=== PATIENT | male | born 1950 | race Caucasian/White ===

== ENCOUNTER 2016-05-02 02:10 | Emergency (ER) ==
[2016-05-02 02:19] VITALS: BP 176/70; TEMP 99.6; BMI 27.7
--- NOTE | 2016-05-02 02:25 | ED.PDOC ---
General ED Provider: Dr. THU VALLEJO-ER Chief Complaint: Respiratory Complaint Stated Complaint: rosangela got bronchitis--rosangela had it before Time Seen by Physician: 02:23 Mode of Arrival: Walk-In Information Source: Patient Exam Limitations: No limitations Nursing and Triage Documentation Reviewed and Agree: Yes Respiratory Complaint Exam - Respiratory Complaint/Exam Onset/Duration: 4 days Symptoms Are: Still present Timing: Intermittent Initial Severity: Mild Current Severity: Mild Location: Chest Character: Reports: Productive cough Aggravating: Reports: URI, Passive smoke exposure Alleviating: Reports: None Associated Signs and Symptoms: Reports: Wheezing, URI, Nasal congestion. Denies : Rapid breathing, Dyspnea, Fever, Chills, Chest pain, Pleuritic chest pain, Hemoptysis, Dizziness, Calf pain, Calf swelling, Edema, Hoarseness, Sinus discomfort, Vomiting, Sore throat, Weight loss, Decreased oral intake, Increased thirst, Increased appetite, Increased urination Related History: Reports: Similar episode History of Healthcare-Acquired Pneumonia: No Related Surgical History: Reports: None Pulmonary Embolism Risk Factors: Smoking Cardiac Risk Factors: Reports: Smoking Pseudomonas Risk Factors: Reports: None Tuberculosis Risk Factors: Reports: Smoking Status Asthmaticus Risk Factors: Reports: None Home Oxygen Use: No Recent Stress Test: No Recent Echo/LV Function: No Current Antibiotic Use: No Current Asthma Medication Use: No Respiratory Distress: None Inadequate Respiratory Effort: No Dysphagia Present: No Stridor Present: No JVD Present: No Accessory Muscle Use: No Retractions: Not Present Diminished Breath Sounds: No Sinus Tenderness: None Grunting Respirations: No Kussmaul Respirations: No Differential Diagnoses: Bronchitis Review of Systems - Review Of Systems Constitutional: Reports: No symptoms Eyes: Reports: No symptoms Ears, Nose, Mouth, Throat: Reports: No symptoms Respiratory: Reports: Cough, Wheezing Cardiac: Reports: No symptoms GI: Reports: No symptoms : Reports: No symptoms Musculoskeletal: Reports: No symptoms Skin: Reports: No symptoms Neurological: Reports: No symptoms Endocrine: Reports: No symptoms Hematologic/Lymphatic: Reports: No symptoms All Other Systems: Reviewed and Negative Past Medical History - Past Medical History Previously Healthy: Yes Endocrine: Reports: None Cardiovascular: Reports: None Respiratory: Reports: None Hematological: Reports: None Gastrointestinal: Reports: None Genitourinary: Reports: None Neuro/Psych: Reports: None Musculoskeletal: Reports: None Cancer: Reports: None - Surgical History General Surgical History: Reports: None - Family History Family History: Reports: None - Social History Smoking Status: Current every day smoker, Heavy tobacco smoker Hx Substance Use: Yes (marijuana) Alcohol Screening: None Lives: With family - Immunizations Tetanus Shot up to Date: No (states, "refuses shots") Physical Exam - Physical Exam Appearance: Well-appearing, No pain distress, Well-nourished Eyes: KE, EOMI, Conjunctiva clear ENT: Rhinorrhea Neck: Supple Respiratory: Rhonchi, Wheezes Cardiovascular: RRR, Pulses normal, No rub, No murmur GI/: Soft, Nontender, No masses, Bowel sounds normal, No Organomegaly Musculoskeletal: Normal strength, ROM intact, No edema, No calf tenderness Skin: Warm, Dry, Normal color Neurological: Sensation intact, Motor intact, Reflexes intact, Cranial nerves intact, Alert, Oriented Psychiatric: Affect appropriate Critical Care Note - Critical Care Note Total Time (mins): 0 Course - Course Orders, Labs, Meds: the patient refused any labs,xrays or ekg Vital Signs: Temp Pulse Resp BP Pulse Ox 05/02/16 02:11 99.6 F 95 H 22 176/70 H 94 L Departure - Departure Time of Disposition: 02:25 Disposition: HOME SELF-CARE Discharge Problem: Bronchitis Instructions: Acute Bronchitis (ED) Condition: Good Pt referred to PMD for follow-up: Yes Additional Instructions: ophelia henriquezrol dose pack--proventil inhaler 2 puffs qid --stop smoking--recheck in 48hrs if not improving --consider cxr Allergies/Adverse Reactions: Allergies No Known Allergies Allergy (Verified 05/02/16 02:19) Home Medications: Ambulatory Orders 1 [No Reported Medications] 11/02/14 Disposition Discussed With: Patient
== END 2016-05-02 02:41 | disposition home or self-care (01) ==
LOC: ED 02:10
DX: J20.9 Acute bronchitis, unspecified (principal); F17.210 Nicotine dependence, cigarettes, uncomplicated
CPT/HCPCS: 99282

== ENCOUNTER 2016-07-09 22:56 | Emergency (ER) ==
[2016-07-09 23:09] VITALS: BP 187/90; TEMP 98.8; BMI 29.0
[2016-07-10] MEDS: TORADOL IM STA (00:12)
[2016-07-10] MEDS: DECADRON 4 MG/ML SDV IM STA (00:14)
[2016-07-10] MEDS: NORCO 5-325 PO STA (00:14)
--- NOTE | 2016-07-10 00:30 | ED.PDOC ---
General ED Provider: Dr. THU VALLEJO-ER Chief Complaint: Extremity Swelling/Pain Stated Complaint: the top of my wrist has hurt for 3 weeks--hurts to move Time Seen by Physician: 22:55 Mode of Arrival: Walk-In Information Source: Patient, Family Exam Limitations: No limitations Nursing and Triage Documentation Reviewed and Agree: Yes Musculoskeletal Complaint Exam - Hand/Wrist Complaint/Exam Location of Pain: Reports: Left, Wrist Mechanism of Injury: Reports: No known trauma Onset/Duration: several weeks Symptoms Are: Still present Initial Severity: Mild Current Severity: Mild Location: Reports: Discrete (left wrist) Character: Reports: Dull, Aching, Stiffness Alleviating: Reports: Rest Aggravating: Reports: Movement Associated Signs and Symptoms: Denies: Swelling, Redness, Bruising, Fever, Weakness, Numbness, Tingling Dominant Hand: Right Related Surgical History: Reports: Other Orthopedic Surgery Hand/Wrist Findings: Absent: Swelling, Ecchymosis, Abnormal contour, Rotation, Ligamentous instability, Tinel's Sign, Phalen's Sign, Laceration, Nail avulsion , Subungal hematoma, Erythema, Warmth, Blisters Tenderness: Present: Radius, Ulna Compartment Syndrome Risk Factors: Present: Pain Differential Diagnoses: Sprain, Strain, Tendonitis, Tenosynovitis Review of Systems - Review Of Systems Constitutional: Reports: No symptoms Eyes: Reports: No symptoms Ears, Nose, Mouth, Throat: Reports: No symptoms Respiratory: Reports: No symptoms Cardiac: Reports: No symptoms GI: Reports: No symptoms : Reports: No symptoms Musculoskeletal: Reports: Muscle pain, Muscle stiffness Skin: Reports: No symptoms Neurological: Reports: No symptoms Endocrine: Reports: No symptoms Hematologic/Lymphatic: Reports: No symptoms All Other Systems: Reviewed and Negative Past Medical History - Past Medical History Previously Healthy: Yes Endocrine: Reports: None Cardiovascular: Reports: None Respiratory: Reports: None Hematological: Reports: None Gastrointestinal: Reports: None Genitourinary: Reports: None Neuro/Psych: Reports: None Musculoskeletal: Reports: None Cancer: Reports: None - Surgical History General Surgical History: Reports: None - Family History Family History: Reports: None - Social History Smoking Status: Current every day smoker, Heavy tobacco smoker Hx Substance Use: Yes (marijuana occasionally) Alcohol Screening: None Lives: With family - Immunizations Tetanus Shot up to Date: No Physical Exam - Physical Exam Appearance: Well-appearing, No pain distress, Well-nourished Pain Distress: Moderate Eyes: KE, EOMI, Conjunctiva clear ENT: Ears normal, Nose normal, Oropharynx normal Neck: Supple Respiratory: Airway patent, Breath sounds clear, Breath sounds equal, Respirations nonlabored Cardiovascular: RRR GI/: Soft, Nontender, No masses, Bowel sounds normal, No Organomegaly Musculoskeletal: Limited ROM Skin: Warm, Dry, Normal color Neurological: Sensation intact, Motor intact, Reflexes intact, Cranial nerves intact, Alert, Oriented Psychiatric: Affect appropriate, Mood appropriate Interpretation - Radiology Interpretation Radiology Interpretation By: Radiologist Radiology Results: Negative Critical Care Note - Critical Care Note Total Time (mins): 0 Course - Course Orders, Labs, Meds: Orders Category Date Time Status Dexamethasone 4 mg/ml Inj [Decadron 4 mg/ml Sdv] MEDS 07/09/16 23:46 Discontinued 4 mg IM ONCE STA Hydrocodone Bit/Acetaminophen [[place] 5-325] MEDS 07/09/16 23:46 Discontinued 1 tab PO ONCE STA Ketorolac Tromethamine [Toradol] MEDS 07/09/16 23:46 Discontinued 60 mg IM ONCE STA WRIST, LEFT 3 VIEWS Stat RADS 07/09/16 23:45 Completed Medications Discontinued Medications Generic Name Dose Route Start Last Admin Trade Name Freq PRN Reason Stop Dose Admin Acetaminophen/Hydrocodone Bitart 1 tab 07/09/16 23:46 07/10/16 00:14 [place] 5-325 PO 07/09/16 23:47 1 tab ONCE STA Administration Dexamethasone Sodium Phosphate 4 mg 07/09/16 23:46 07/10/16 00:14 Decadron 4 Mg/Ml Sdv IM 07/09/16 23:47 4 mg ONCE STA Administration Ketorolac Tromethamine 60 mg 07/09/16 23:46 07/10/16 00:12 Toradol IM 07/09/16 23:47 60 mg ONCE STA Administration Vital Signs: Temp Pulse Resp BP Pulse Ox 07/09/16 22:58 98.8 F 83 20 187/90 H 97 Departure - Departure Time of Disposition: 00:36 Disposition: HOME SELF-CARE Discharge Problem: De Quervain's disease (tenosynovitis) Instructions: De Quervain Disease (ED) Condition: Good Pt referred to PMD for follow-up: Yes Additional Instructions: stay in splint--medrol dose pack--norco 7.5mg q 4hrs prn pain #20--f/u with ortho next week Allergies/Adverse Reactions: Allergies No Known Allergies Allergy (Verified 07/09/16 23:11) Home Medications: Ambulatory Orders 1 [No Reported Medications] 11/02/14 Disposition Discussed With: Patient, Family
--- NOTE | 2016-07-10 00:35 | DI ---
EXAM: Left wrist, three views, 07/10/2016 HISTORY: Wrist pain COMPARISON: None FINDINGS / IMPRESSION: Normal anatomic alignment is maintained. There are is no evidence of fractu re or dislocation. Edematous appearance is present at the level of the distal forearm. Mild chronic osteoarthritic degenerative change. No acute post traumatic osseous abnormality.
== END 2016-07-10 01:00 | disposition home or self-care (01) ==
LOC: ED 22:56
DX: M65.4 Radial styloid tenosynovitis [de Quervain] (principal); M25.532 Pain in left wrist
CPT/HCPCS: 96372; 99283

== ENCOUNTER 2017-02-05 08:57 | Emergency (ER) ==
[2017-02-05 09:12] VITALS: BP 160/80; TEMP 98.4; BMI 26.4
[2017-02-05] MEDS ORDERED: DECADRON 4 MG/ML SDV IM STA (09:52)
--- NOTE | 2017-02-05 09:53 | ED.PDOC ---
General ED Provider: Dr. HERIBERTO MERCEDES Chief Complaint: Urinary Problem Stated Complaint: intermittent urinary hesitancy Time Seen by Physician: 09:00 (cough cold symptoms) Mode of Arrival: Walk-In Information Source: Patient Exam Limitations: No limitations Nursing and Triage Documentation Reviewed and Agree: Yes Reviewed sepsis parameters & appropriate labs ordered?: Yes (started after taking a decongestant , ) System Inflammatory Response Syndrome: Not Applicable Sepsis Protocol: For patient's 13 years and over: Temp is 96.8 and below OR 101 and greater Pulse >90 BPM Resp >20/minute Acutely Altered Mental Status Are patient's symptoms suggestive of a new infection, such as: -Pneumonia -Skin, Soft Tissue -Endocarditis -UTI -Bone, Joint Infection -Implantable Device -Acute Abdominal Infection -Wound Infection -Meningitis -Blood Stream Catheter Infection -Unknown Complaint Exam - Complaint/Exam Patient Complains of: Denies: Scrotal pain, Scrotal swelling, Groin pain, Groin swelling, Dysuria Onset/Duration: 1 day of intermittent frequnecy, hesitency Symptoms Are: Still present Timing: Intermittent Initial Severity: Mild Current Severity: Mild Location of Pain: Reports: None Aggravating: Reports: None Alleviating: Reports: None Associated Signs and Symptoms: Denies: Diaphoresis, Back pain, Fever, Hematuria , Dysuria, Constipation, Blood in stool, Rectal pain, Appetite change, Nausea, Vomiting, Penile swelling, Penile discharge, Decreased urine output, Increased urine frequency, Increased thirst, Decreased activity, Lethargy, Scrotal pain, Scrotal swelling, Abdominal Pain Testicular Torsion Risk Factors: Reports: None Surgical Obstruction Risk Factors: Reports: None Related Surgical History: Reports: None Abdominal Findings: Present: None Review of Systems - Review Of Systems Constitutional: Reports: No symptoms Eyes: Reports: No symptoms Ears, Nose, Mouth, Throat: Reports: No symptoms Respiratory: Reports: Cough Cardiac: Reports: No symptoms GI: Reports: No symptoms : Reports: Urgency, Other Musculoskeletal: Reports: No symptoms Skin: Reports: No symptoms Neurological: Reports: No symptoms Endocrine: Reports: No symptoms Hematologic/Lymphatic: Reports: No symptoms All Other Systems: Reviewed and Negative Past Medical History - Past Medical History Previously Healthy: Yes Endocrine: Reports: None Cardiovascular: Reports: None Respiratory: Reports: None Hematological: Reports: None Gastrointestinal: Reports: None Genitourinary: Reports: None Neuro/Psych: Reports: None Musculoskeletal: Reports: None Cancer: Reports: None - Surgical History General Surgical History: Reports: None - Family History Family History: Reports: None - Social History Smoking Status: Current every day smoker, Heavy tobacco smoker Hx Substance Use: No (marjuana quite yesterday) Alcohol Screening: None - Immunizations Tetanus Shot up to Date: No Physical Exam - Physical Exam Appearance: Well-appearing, No pain distress, Well-nourished Eyes: KE, EOMI, Conjunctiva clear ENT: Ears normal, Nose normal, Oropharynx normal Respiratory: Rhonchi Cardiovascular: RRR, Pulses normal, No rub, No murmur GI/: Soft, Nontender, No masses, Bowel sounds normal, No Organomegaly Musculoskeletal: Normal strength, ROM intact, No edema, No calf tenderness Skin: Warm, Dry, Normal color Neurological: Sensation intact, Motor intact, Reflexes intact, Cranial nerves intact, Alert, Oriented Psychiatric: Affect appropriate, Mood appropriate Critical Care Note - Critical Care Note Total Time (mins): 0 Course - Course Hematology/Chemistry: 02/05/17 09:30 Orders, Labs, Meds: Lab Review 02/05/17 09:30 WBC 6.23 RBC 4.79 Hgb 14.0 Hct 40.0 L MCV 83.5 MCH 29.2 MCHC 35.0 RDW Coeff of Karen 13.3 Plt Count 190 Immature Gran % (Auto) 0.2 Neut % (Auto) 65.3 Lymph % (Auto) 23.3 [place] % (Auto) 10.1 H Eos % (Auto) 0.6 Baso % (Auto) 0.5 Immature Gran # (Auto) 0.0 Neut # 4.1 Lymph # 1.5 [place] # 0.6 Eos # 0.0 Baso # 0.0 Orders Category Date Time Status Bladder [ED BLADDER SCAN] .ONCE EMERGENCY 02/05/17 09:19 Active CBC W/ AUTO DIFF Stat LAB 02/05/17 09:30 Completed COMPREHENSIVE METABOLIC PANEL Stat LAB 02/05/17 09:30 Received URINALYSIS C & S IF INDICATED Stat LAB 02/05/17 09:19 Uncollected Vital Signs: Temp Pulse Resp BP Pulse Ox 02/05/17 08:58 98.4 F 80 16 160/80 H 94 L Departure - Departure Time of Disposition: 09:53 Disposition: HOME SELF-CARE Discharge Problem: Urinary symptoms, Prostate disease, Cough in adult Instructions: Benign Prostatic Hypertrophy (ED) Condition: Good Pt referred to PMD for follow-up: Yes Additional Instructions: Please call your Family Physician as soon as possible to schedule a follow-up appointment. I STROGNLY THINK THAT YOUR SYMPTOMS OF URGENCY FREQUENCY MAY BE RELATED TO YOUR PROSTATE GLAND. THIS GLAND CAN BE ENLARGED OR SOMETIMES BE AFFLICTED BY CANCER PLEASE DO NO OVERLOOK THIS ISSUE SEE YOUR MD HALINA Allergies/Adverse Reactions: Allergies No Known Allergies Allergy (Verified 02/05/17 09:17) Home Medications: Ambulatory Orders 1 [No Reported Medications] 11/02/14 Disposition Discussed With: Patient
[2017-02-06 02:07] VITALS: BMI 29.8
== END 2017-02-05 10:55 | disposition home or self-care (01) ==
LOC: ED 08:57
DX: R39.11 Hesitancy of micturition (principal); R05 Cough; N42.9 Disorder of prostate, unspecified; R31.9 Hematuria, unspecified; R39.15 Urgency of urination; F17.210 Nicotine dependence, cigarettes, uncomplicated
CPT/HCPCS: 36415; 80053; 81001; 85025; 96372; 99284

== ENCOUNTER 2017-02-05 21:55 | Inpatient (IN) ==
[2017-02-05] MEDS ORDERED: XOPENEX 1.25 MG NEB STA (22:05)
[2017-02-05] MEDS ORDERED: ALBUTEROL 0.042% NEB NEB STA (22:05)
[2017-02-05] MEDS ORDERED: ATIVAN IVP STA (22:06)
[2017-02-05] MEDS ORDERED: SODIUM CHLORIDE 1,000 ML IV STA (22:06)
[2017-02-05] MEDS ORDERED: ZOFRAN 4 MG/2 ML IVP STA (23:02)
--- NOTE | 2017-02-05 23:56 | CT ---
Exam: CT angiography of the chest History: Dyspnea Technique: [address] angiography of the chest. Multiplanar, maximum intensity projection and three-dim ensional reformations were performed. FINDINGS: The exam is technically adequate for evaluation of pulmonary arteries and aorta. There ar e no pulmonary artery filling defects. The aorta is normal. Atherosclerotic calcification of the co ronary arteries. Lung windows show no consolidative opacities. There is bronchial wall thickening a nd vague nodular ground-glass areas in the left lower lobe. Mild underlying emphysematous change. N o acute findings of the chest wall soft tissues or bony thorax. No acute findings of the upper abdom en. Impression: 1. No evidence of pulmonary artery thrombus 2. Left lower lobe bronchial wall thickening and patchy nodular infiltrates. Correlate for pneumoni tis.
[2017-02-06] MEDS ORDERED: ROCEPHIN 1 GM in SODIUM CHLORIDE 50 ML IV STA (00:35)
--- NOTE | 2017-02-06 00:35 | ED.PDOC ---
General ED Provider: Dr. THU VALLEJO-ER Chief Complaint: Non-specific Complaint Stated Complaint: im coughing and im not sleeping or eating--i was seen in the ed earlier today Time Seen by Physician: 22:05 Mode of Arrival: Walk-In Information Source: Patient, Family Exam Limitations: No limitations Nursing and Triage Documentation Reviewed and Agree: Yes Reviewed sepsis parameters & appropriate labs ordered?: Yes System Inflammatory Response Syndrome: Not Applicable Sepsis Protocol: For patient's 13 years and over: Temp is 96.8 and below OR 101 and greater Pulse >90 BPM Resp >20/minute Acutely Altered Mental Status Are patient's symptoms suggestive of a new infection, such as: -Pneumonia -Skin, Soft Tissue -Endocarditis -UTI -Bone, Joint Infection -Implantable Device -Acute Abdominal Infection -Wound Infection -Meningitis -Blood Stream Catheter Infection -Unknown Respiratory Complaint Exam - Respiratory Complaint/Exam Onset/Duration: 2 days Symptoms Are: Still present Timing: Intermittent Initial Severity: Mild Current Severity: Moderate Location: Chest Character: Reports: Non-productive cough Aggravating: Reports: URI Alleviating: Reports: None Associated Signs and Symptoms: Reports: Dyspnea, Fever, Pleuritic chest pain, URI. Denies: Rapid breathing, Chills, Chest pain, Wheezing, Hemoptysis, Dizziness, Calf pain, Calf swelling, Edema, Nasal congestion, Hoarseness, Sinus discomfort, Vomiting, Sore throat, Weight loss, Decreased oral intake, Increased thirst, Increased appetite, Increased urination Related History: Reports: Similar episode History of Healthcare-Acquired Pneumonia: No Cardiac Risk Factors: Reports: Smoking Tuberculosis Risk Factors: Reports: Smoking Status Asthmaticus Risk Factors: Reports: Smoke exposure Recent Stress Test: No Recent Echo/LV Function: No Respiratory Distress: None Inadequate Respiratory Effort: No Dysphagia Present: No Stridor Present: No JVD Present: No Accessory Muscle Use: No Retractions: Not Present Diminished Breath Sounds: No Sinus Tenderness: None Grunting Respirations: No Kussmaul Respirations: No Differential Diagnoses: Pneumonia, Bronchitis, Influenza Non-Traumatic Chest Pain Syncope: EKG Performed Review of Systems - Review Of Systems Constitutional: Reports: No symptoms Eyes: Reports: No symptoms Ears, Nose, Mouth, Throat: Reports: No symptoms Respiratory: Reports: Cough Cardiac: Reports: No symptoms GI: Reports: No symptoms : Reports: No symptoms Musculoskeletal: Reports: No symptoms Skin: Reports: No symptoms Neurological: Reports: No symptoms Endocrine: Reports: No symptoms Hematologic/Lymphatic: Reports: No symptoms All Other Systems: Reviewed and Negative Past Medical History - Past Medical History Previously Healthy: Yes Endocrine: Reports: None Cardiovascular: Reports: None Respiratory: Reports: None Hematological: Reports: None Gastrointestinal: Reports: None Genitourinary: Reports: None Neuro/Psych: Reports: None Musculoskeletal: Reports: None Cancer: Reports: None - Surgical History General Surgical History: Reports: None - Family History Family History: Reports: None - Social History Smoking Status: Current every day smoker, Heavy tobacco smoker Hx Substance Use: No ( yesterday) Alcohol Screening: None Lives: With family Physical Exam - Physical Exam Appearance: Well-appearing, No pain distress, Well-nourished Eyes: KE, EOMI, Conjunctiva clear ENT: Ears normal, Nose normal, Oropharynx normal Neck: Supple Respiratory: Crackles, Rhonchi Cardiovascular: RRR, Pulses normal, No rub, No murmur GI/: Soft, Nontender, No masses, Bowel sounds normal, No Organomegaly Musculoskeletal: Normal strength, ROM intact, No edema, No calf tenderness Skin: Warm, Dry, Normal color Neurological: Sensation intact Psychiatric: Affect appropriate, Mood appropriate Interpretation - Radiology Interpretation Radiology Interpretation By: Radiologist Radiology Results: Positive Exam Interpreted: CT Scan - EKG Interpretation Time of EKG #1: 00:37 Rate: Normal Rhythm: Sinus Ectopy: None [place]: NL ST Segment: Normal Physician Notification - Case Discussed Physician Notified: dr carroll Time of Notification: 00:38 Critical Care Note - Critical Care Note Total Time (mins): 0 Course - Course Hematology/Chemistry: 02/05/17 22:15 02/05/17 22:15 Orders, Labs, Meds: Lab Review 02/05/17 02/05/17 02/05/17 22:04 22:15 22:15 WBC 8.77 RBC 4.81 Hgb 14.2 Hct 40.1 L MCV 83.4 MCH 29.5 MCHC 35.4 RDW Coeff of Karen 13.4 Plt Count 193 Immature Gran % (Auto) 0.1 Neut % (Auto) 72.3 Lymph % (Auto) 19.6 [place] % (Auto) 7.8 Eos % (Auto) 0.0 Baso % (Auto) 0.2 Immature Gran # (Auto) 0.0 Neut # 6.3 Lymph # 1.7 [place] # 0.7 Eos # 0.0 Baso # 0.0 Puncture Site Rrad O2 Saturation 94.0 L ABG pH 7.422 ABG pCO2 37.2 ABG pO2 67.0 L ABG HCO3 24.2 ABG Total CO2 25 ABG Base Excess 0 Gabriel Test + FiO2 % 21.0 Sodium 135 L Potassium 3.9 Chloride 100 Carbon Dioxide 24 Anion Gap 14.9 BUN 12 Creatinine 0.80 Estimated GFR (MDRD) 97.00 BUN/Creatinine Ratio 15.00 Glucose 119 H Lactic Acid Calcium 9.5 Total Bilirubin 0.4 AST 22 ALT 20 Alkaline Phosphatase 80 Total Creatine Kinase 131 CK-MB (CK-2) 3.8 H CK-MB (CK-2) % 2.33258 Troponin I < 0.0100 B-Natriuretic Peptide Total Protein 7.2 Albumin 3.6 Globulin 3.6 Albumin/Globulin Ratio 1.00 Procalcitonin Influenza A (Rapid) Influenza B (Rapid) 02/05/17 02/05/17 02/05/17 22:15 23:07 23:09 WBC RBC Hgb Hct MCV MCH MCHC RDW Coeff of Karen Plt Count Immature Gran % (Auto) Neut % (Auto) Lymph % (Auto) [place] % (Auto) Eos % (Auto) Baso % (Auto) Immature Gran # (Auto) Neut # Lymph # [place] # Eos # Baso # Puncture Site O2 Saturation ABG pH ABG pCO2 ABG pO2 ABG HCO3 ABG Total CO2 ABG Base Excess Gabriel Test FiO2 % Sodium Potassium Chloride Carbon Dioxide Anion Gap BUN Creatinine Estimated GFR (MDRD) BUN/Creatinine Ratio Glucose Lactic Acid 6.3 Calcium Total Bilirubin AST ALT Alkaline Phosphatase Total Creatine Kinase CK-MB (CK-2) CK-MB (CK-2) % Troponin I B-Natriuretic Peptide < 10 Total Protein Albumin Globulin Albumin/Globulin Ratio Procalcitonin Influenza A (Rapid) Negative Influenza B (Rapid) Positive H 02/05/17 23:09 WBC RBC Hgb Hct MCV MCH MCHC RDW Coeff of Karen Plt Count Immature Gran % (Auto) Neut % (Auto) Lymph % (Auto) [place] % (Auto) Eos % (Auto) Baso % (Auto) Immature Gran # (Auto) Neut # Lymph # [place] # Eos # Baso # Puncture Site O2 Saturation ABG pH ABG pCO2 ABG pO2 ABG HCO3 ABG Total CO2 ABG Base Excess Gabriel Test FiO2 % Sodium Potassium Chloride Carbon Dioxide Anion Gap BUN Creatinine Estimated GFR (MDRD) BUN/Creatinine Ratio Glucose Lactic Acid Calcium Total Bilirubin AST ALT Alkaline Phosphatase Total Creatine Kinase CK-MB (CK-2) CK-MB (CK-2) % Troponin I B-Natriuretic Peptide Total Protein Albumin Globulin Albumin/Globulin Ratio Procalcitonin < 0.05 Influenza A (Rapid) Influenza B (Rapid) Orders Category Date Time Status ABG DRAW REQUEST Stat CARDIO 02/05/17 22:04 Ordered EKG-(ED ONLY) Stat CARDIO 02/05/17 22:04 Ordered NEBULIZER TREATMENT Stat CARDIO 02/05/17 22:05 Ordered NPO REMINDER: IMAGING ONCE CARE 02/05/17 22:07 Completed IV [ED IV/MEDIPORT/POWERPORT] .ONCE EMERGENCY 02/05/17 22:05 Active ABG Stat LAB 02/05/17 22:04 Completed BLOOD CULTURE (ED ONLY) Stat LAB 02/06/17 Ordered BNP [B-TYPE NATRIURETIC PEPTIDE] Stat LAB 02/05/17 22:15 Completed CBC W/ AUTO DIFF Stat LAB 02/05/17 22:15 Completed COMPREHENSIVE METABOLIC PANEL Stat LAB 02/05/17 22:15 Completed CREATINE KINASE Stat LAB 02/05/17 22:15 Completed LACTIC ACID Stat LAB 02/05/17 23:07 Completed MOLECULAR GROUP A STREP Stat LAB 02/05/17 23:09 Results PROCALCITONIN Stat LAB 02/05/17 23:09 Completed RAPID FLU A/B Stat LAB 02/05/17 23:09 Completed STREP SCREEN Stat LAB 02/05/17 23:09 Results TROPONIN I Stat LAB 02/05/17 22:15 Completed 0.9 % Sodium Chloride [Saline Flush] MEDS 02/05/17 22:05 Ordered 1 syr IVF PRN PRN Albuterol Sulfate 0.042% Neb [Albuterol 0.042% Neb] MEDS 02/05/17 22:05 Discontinued 1 vial NEB ONCE STA Ceftriaxone Sodium [Rocephin] 1 gm MEDS 02/06/17 00:35 Ordered 0.9 % Sodium Chloride [Sodium Chloride] 50 ml IV ONCE Levalbuterol HCl [Xopenex 1.25 mg] MEDS 02/05/17 22:05 Discontinued 1 vial NEB ONCE STA Lorazepam Inj [Ativan] MEDS 02/05/17 22:06 Discontinued 1 mg IVP ONCE STA Ondansetron HCl/Pf [Zofran 4 mg/2 ml] MEDS 02/05/17 23:02 Discontinued 4 mg IVP ONCE STA Sodium Chloride 0.9% [Sodium Chloride] 1,000 ml MEDS 02/05/17 22:06 Active IV 100 mls/hr CT CHEST PE PROTOCOL Stat RADS 02/05/17 22:07 Completed Medications Generic Name Dose Route Start Last Admin Trade Name Freq PRN Reason Stop Dose Admin Sodium Chloride 1,000 mls @ 100 mls/hr 02/05/17 22:06 02/05/17 22:40 Sodium Chloride IV 02/06/17 08:05 100 mls/hr .Q10H STA Administration Sodium Chloride 1 syr 02/05/17 22:05 02/05/17 22:52 Saline Flush IVF 1 syr PRN PRN Administration To flush IV Discontinued Medications Generic Name Dose Route Start Last Admin Trade Name Freq PRN Reason Stop Dose Admin Albuterol Sulfate 1 vial 02/05/17 22:05 Albuterol 0.042% Neb [facility] 02/05/17 22:06 ONCE STA Levalbuterol HCl 1 vial 02/05/17 22:05 02/05/17 22:24 Xopenex 1.25 Mg NEB 02/05/17 22:06 1 vial ONCE STA Administration Lorazepam 1 mg 02/05/17 22:06 02/05/17 22:51 Ativan IVP 02/05/17 22:07 1 mg ONCE STA Administration Ondansetron HCl 4 mg 02/05/17 23:02 Zofran 4 Mg/2 Ml IVP 02/05/17 23:03 ONCE STA Vital Signs: Temp Pulse Resp BP Pulse Ox 02/05/17 22:02 100.2 F H 98 H 22 154/68 H 93 L Departure - Departure Time of Disposition: 00:38 Disposition: ADMITTED INPATIENT Discharge Problem: Influenza B Pneumonia Qualifiers: Pneumonia type: due to unspecified organism Laterality: left Lung location: unspecified part of lung Qualified Code(s): J18.9 - Pneumonia, unspecified organism Instructions: Influenza (ED) Condition: Good Pt referred to PMD for follow-up: Yes Allergies/Adverse Reactions: Allergies No Known Allergies Allergy (Verified 02/05/17 09:17) Home Medications: Ambulatory Orders 1 [No Reported Medications] 11/02/14 Disposition Discussed With: Patient, Family
[2017-02-06] MEDS ORDERED: TYLENOL PO PRN (00:39)
[2017-02-06] MEDS ORDERED: ROCEPHIN ONE (00:44)
[2017-02-06] MEDS: TAMIFLU PO SCH ×3 (01:37→20:45)
[2017-02-06 02:07] VITALS: BMI 29.8
[2017-02-06] MEDS: SOLU-MEDROL 40 MG IVP SCH ×4 (02:32→20:45)
[2017-02-06] MEDS: DUONEB NEB SCH ×4 (04:56→20:07)
[2017-02-06] MEDS ORDERED: DUONEB NEB SCH (06:00)
[2017-02-06] MEDS: ZITHROMAX PO SCH (08:03)
[2017-02-06] MEDS: LOVENOX SUBCUT SCH (08:04)
[2017-02-06] MEDS: ROCEPHIN 1 GM in SODIUM CHLORIDE 50 ML IV SCH (20:45)
[2017-02-07] MEDS: DUONEB NEB SCH ×4 (04:37→23:28)
[2017-02-07] MEDS: SOLU-MEDROL 40 MG IVP SCH ×3 (05:32→22:21)
[2017-02-07] MEDS: TAMIFLU PO SCH ×2 (08:52→21:16)
[2017-02-07] MEDS: ZITHROMAX PO SCH (08:52)
[2017-02-07] MEDS: LOVENOX SUBCUT SCH (10:15)
[2017-02-07] MEDS: ROCEPHIN 1 GM in SODIUM CHLORIDE 50 ML IV SCH (21:16)
[2017-02-08 05:57] VITALS: BP 131/70; TEMP 96.5
[2017-02-08] MEDS: DUONEB NEB SCH ×2 (06:18→10:10)
[2017-02-08] MEDS: SOLU-MEDROL 40 MG IVP SCH (06:49)
[2017-02-08] MEDS: ZITHROMAX PO SCH (09:56)
[2017-02-08] MEDS: LOVENOX SUBCUT SCH (09:57)
[2017-02-08] MEDS: TAMIFLU PO SCH (09:57)
--- NOTE | 2017-02-08 10:05 | DI ---
Exam: Two x-rays of the chest. Comparison: CT PE protocol performed 02/05/2017. Reason for exam: Cough. FINDINGS: No pneumothorax, pleural effusion, or focal consolidation. The cardiac silhouette is not e nlarged. The imaged osseous structures appear grossly unremarkable without acute fracture. Impression: No acute cardiopulmonary process.
--- NOTE | 2017-02-09 14:07 | PN ---
DATE OF SERVICE: 02/07/17 SUBJECTIVE: The patient was admitted with COPD exacerbation, hypoxemia and pneumonia. Breathing better, still has some cough and shortness of breath and getting yellow/green phlegm. REVIEW OF SYSTEMS: CONSTITUTIONAL: No fever, no chills. HEENT: Normal. ENDOCRINE: No weight gain, no weight loss. CVS: No angina symptoms. No CHF symptoms. No palpitations. No atypical chest pain for CAD. No shortness of breath. No PND, no orthopnea. RESPIRATORY: No cough, no hemoptysis. GI: No nausea, no vomiting. No abdominal pain. : No hematuria. No polyuria. MUSCULOSKELETAL:. No joint swelling. PSYCHIATRIC: Not anxious. No depression. No suicidal thoughts. No homicidal thoughts. SKIN: Intact. No rash. PHYSICAL EXAMINATION: V/S: Blood pressure 138/66, respiratory rate 23, heart rate 79, temperature 98.5. HEENT: Normocephalic, atraumatic. Mucosa dry. Pallor positive. NECK: Supple. No JVD, no carotid bruit. No lymphadenopathy. LUNGS: Decreased with basilar crackles left more then the right. No rales or rhonchi. HEART: S1, S2 normal. No S3. No murmur, gallop or regurgitation. ABDOMEN: Soft, nontender. Bowel sounds active. No rigidity. No rebound or guarding. No CVA tenderness. EXTREMITIES: No clubbing, cyanosis or pedal edema. MUSCULOSKELETAL: No joint swelling. NEUROLOGIC: Awake, alert, oriented times three. No focal deficit. LYMPHATIC: No lymph nodes palpable. SKIN: Intact. ASSESSMENT: 1. COPD exacerbation 2. Pneumonia community acquired left lower lobe 3. Influenza B 4. COPD 5. Hypoxemia 6. Osteoarthritis 7. Continued nicotine use PLAN: 1. Continue the Tamiflu 2. IV fluids 3. Solu-Medrol 4. Lovenox 5. Rocephin 6. Azithromycin TIME SPENT: More than 35 minutes MTDD
--- NOTE | 2017-02-09 14:18 | HP ---
DATE OF SERVICE: 02/06/17 CHIEF COMPLAINT: Shortness of breath HISTORY OF PRESENT ILLNESS: This is a 66 year old male cough and congested getting yellow to white phlegm. Gradually shortness of breath is getting worse and productive cough is getting worse. Feverish feeling, chilly sensation and hurting all over. Came to the emergency room and temperature was 100.2, saturation 93% on room air. Seen by Dr. Goldberg in ER. ABG showed the pH 7.42, pCO2 37.2, pO2 67. Influenza was positive for the Influenza B. CT chest showed the left lower lobe pneumonia and pneumonitis. At that time the patient was admitted to the hospital with the hypoxia and COPD, left lower lobe pneumonia and flu positive. REVIEW OF SYSTEMS: CONSTITUTIONAL: Fever, Chills. Weakness. Tiredness. HEENT: Normal. ENDOCRINE: No weight gain; no weight loss. CVS: No chest pain. No PND, no orthopnea. No shortness of breath. No PND, no orthopnea. RESPIRATORY: Cough, Congestion. No hemoptysis. GI: No nausea, no vomiting. No abdominal pain. No melena. : No hematuria. No polyuria. MUSCULOSKELETAL: No joint swelling. Hurting all over. PSYCHIATRIC: Not anxious. No depression. No suicidal thoughts. No homicidal thoughts. SKIN: Intact, no open lesions. PAST MEDICAL HISTORY: Nicotine use Apparently no medical problems patient has listed. PAST SURGICAL HISTORY: Hernia surgery two years ago. Mass removed in 1994 PERSONAL HISTORY: The patient does smoke but no alcohol and no drugs. Family history is significant for the coronary artery disease, [place], leukemia. MEDICATIONS: No medications. ALLERGIES: No known allergies. PHYSICAL EXAMINATION: V/S: blood pressure 154/68, respiratory rate 22, heart rate 98, temperature 100.2 and 100.1, saturation 93%. GENERAL: Sick looking man lying in a bed, mildly in discomfort. HEENT: Atraumatic, normocephalic. No scleral icterus. Mucosa dry. NECK: Supple. No JVD, no bruit. No lymphadenopathy. No thyromegaly. HEART: S1, S2 normal. No murmur. No cyanosis or clubbing. No ascites. LUNGS: Decreased with basilar crackles left more than the right. No rales or rhonchi. ABDOMEN: Soft, nontender. Bowel sounds are active. No CVA tenderness. No rigidity or guarding. EXTREMITIES: No cyanosis, clubbing or pedal edema. MUSCULOSKELETAL: Normal joints, no swelling. NEUROLOGIC: The patient is SKIN: Intact; no open lesions. LYMPHATIC: No lymph nodes palpable. LABS: WBC 9.76, hgb 13.2, hct 37.8, plt count 166, sodium 134, potassium 3.8, chloride 99, bicarb 27, BUN 12, creatinine 0.88, glucose 130. First set of cardiac enzymes are negative. Flu B Positive. ASSESSMENT: 1. Left lower lobe pneumonia 2. Flu B positive 3. Dehydration 4. Hernia repair 5. Nicotine use PLAN: 1. Admit the patient to regular floor 2. CBC and CMP today and daily 3. Cardiac enzymes and Troponin 4. IV fluids 5. Rocephin 1 gram daily 6. Lovenox for the DVT prophylaxis 7. DUO NEBS 8. Tamiflu 75mg PO twice a day 9. IV fluids TIME SPENT: MORE THAN 70 minutes MTDD
--- NOTE | 2017-03-01 11:54 | DS ---
DATE OF SERVICE: 02/08/17 FINAL DIAGNOSIS: 1. INFLUENZA B POSITIVE 2. LEFT LOWER LOBE PNEUMONITIS 3. HYPOXEMIA 4. DEHYDRATION 5. HISTORY OF HERNIA REPAIR PLAN: 1. Discharge the patient home. 2. Keflex 500 mg twice a day for five days. 3. Tamiflu twice a day until gone. 4. Prednisone 10 mg twice a day for five days. 5. Follow up with Dr. Miguel February the . 6. Increase hydration. 7. Probiotics and yogurt. 8. Activity: as much as tolerated. DISEASE SPECIFIC EDUCATION: About the influenza infection and pneumonia, need of pneumonia vaccination and antibiotic use and diarrhea were discussed. HOSPITAL COURSE: Jorge Christian who is a 66 year old male literally apparently healthy male came to the emergency room with cough and congestion for three to four days being dehydrated. He came to the emergency room and was seen by Dr. Goldberg in the emergency room. Temperature was 100.2, blood pressure 154/68. ABG's showed the hypoxia with a pH of 7.422, PCO2 37.2, PO2 67. White count was normal and serology showed the positive influenza B and CT of the chest showed the left lower lobe pneumonitis. At that time, he was admitted to the hospital and started on IV antibiotics and the breathing treatments and Tamiflu was given. Solu-Medrol 40 every 8 hours. Lovenox for the DVT prophylaxis. Rocephin was given. With the given treatment, the patient started feeling better. He was up and about walking. Less short of breath. Fever was literally disappeared in two days. Repeat chest x-ray done today and the chest x-ray was normal. At that time, the patient was discharged to home. TIME SPENT: MORE THAN 65 MINUTES TODAY [facility]
== END 2017-02-08 11:50 | disposition home or self-care (01) | DRG 190 ==
LOC: ED 21:55 → MEDSURG A 02-06 00:47
PROVIDERS: ADMIT Emergency Medicine; ATTEND Emergency Medicine
DX: J44.1 Chronic obstructive pulmonary disease with (acute) exacerbation (principal); J11.08 Influenza due to unidentified influenza virus with specified pneumonia; J18.1 Lobar pneumonia, unspecified organism; J44.0 Chronic obstructive pulmonary disease with (acute) lower respiratory infection; R09.02 Hypoxemia; E86.0 Dehydration; R06.02 Shortness of breath; R50.9 Fever, unspecified; M19.90 Unspecified osteoarthritis, unspecified site; F17.200 Nicotine dependence, unspecified, uncomplicated; Z98.890 Other specified postprocedural states
CPT/HCPCS: 36415; 80053; 82550; 82553; 82803; 83605; 83880; 84145; 84484; 85025; 87040; 87502; 87651; 87880; 93005; 93010; 94640; 96365; 96366; 96375; 99284

== ENCOUNTER 2017-02-23 12:31 | Outpatient (CLI) | END 2017-02-23 12:32 | disposition home or self-care (01) | LOC: CAR 12:31 | PROVIDERS: ATTEND Emergency Medicine | DX: J41.0 Simple chronic bronchitis (principal) ==

== ENCOUNTER 2017-06-06 15:55 | Outpatient (CLI) | END 2017-06-06 15:56 | disposition home or self-care (01) | LOC: RHC-LAB 15:55 | PROVIDERS: ATTEND Emergency Medicine | DX: R73.9 Hyperglycemia, unspecified (principal); D50.8 Other iron deficiency anemias; J44.9 Chronic obstructive pulmonary disease, unspecified; Z12.5 Encounter for screening for malignant neoplasm of prostate | CPT/HCPCS: 36415; 80053; 80061; 83036; 84443; 85025 ==

== ENCOUNTER 2017-09-13 09:58 | Outpatient (CLI) ==
--- NOTE | 2017-09-13 12:40 | DI ---
EXAM: Radiographs, right knee HISTORY: Right knee pain. COMPARISON: None available. TECHNIQUE: Four views. FINDINGS: Bone mineralization is normal. No fracture or dislocation identified. Mild tricompartmen isaías marginal osteophyte formation and joint space narrowing noted. No erosions are seen. Chondrocal cinosis noted in the menisci. Soft tissues are unremarkable. IMPRESSION: 1. Mild osteoarthritis. 2. Meniscal calcifications.
--- NOTE | 2017-09-13 12:42 | DI ---
EXAM: Left knee four view HISTORY: Pain in left knee COMPARISON: None FINDINGS: No fracture or dislocation. Small tricompartmental osteophytes with mild narrowing medial and patellofemoral compartment. Chondrocalcinosis medial and possibly lateral compartment. No joint effusion. IMPERSSION: Mild tricompartmental osteoarthritis. Chondrocalcinosis.
== END 2017-09-13 09:59 | disposition home or self-care (01) ==
LOC: RAD 09:58
PROVIDERS: ATTEND Emergency Medicine
DX: I10 Essential (primary) hypertension (principal); M25.562 Pain in left knee; M25.561 Pain in right knee; R73.9 Hyperglycemia, unspecified; J44.9 Chronic obstructive pulmonary disease, unspecified
CPT/HCPCS: 36415; 80053; 84550; 85025

== ENCOUNTER 2017-10-18 11:56 | Outpatient (CLI) | payer OTHER | END 2017-10-18 11:57 | disposition home or self-care (01) | LOC: LAB 11:56 | PROVIDERS: ATTEND Emergency Medicine | DX: R73.9 Hyperglycemia, unspecified (principal); I10 Essential (primary) hypertension; J44.9 Chronic obstructive pulmonary disease, unspecified; M54.5 Low back pain; G89.29 Other chronic pain; D50.8 Other iron deficiency anemias | CPT/HCPCS: 36415; 80053; 80061; 84443; 85025 ==

== ENCOUNTER 2017-10-25 06:26 | Outpatient (CLI) ==
--- NOTE | 2017-10-25 08:33 | STRESSECHO ---
Date of Test: 10/25/17 Ordering Physician: DR. RICHELLE HOLM/DR. RUDI NUNES Occupation: CLINIC PHYSICIAN Reason for Exam: SOB, HYPERTENSION Smoking History: QUIT JAN 2017 Height: 73" Weight: 250 LBS Current Medications: ASA, LASIX, LIPITOR, LISINOPRIL Resting EKG: SINUS RHYTHM/ NO ACUTE CHANGES Target Heart Rate: 131/155 S-T SEGMENT STAGE MPH/GRADE HEART RATE BPM BLOOD PRESSURE MMHG RHYTHM +/- ELEVATION DEPRESSION SYMPTOMS,COMMENTS AT REST 77 120/80 SR X NONE 1 1.7/10% 2 2.5/12% 3 3.4/14% 4 4.2/16% 5 5.0/18% Immediately After 142 190/78 SR X SHORT OF BREATH Minutes Post Exercise 4:00 80 160/70 SR X NO COMMENTS Minutes Post Exercise DURATION OF EXERCISE: 2:59 MAXIMUM HEART RATE REACHED: 142 REASON FOR TERMINATION: SHORT OF BREATH SAO2 89% ON ROOM AIR WITH EXERCISE INTERPRETATION: 1. TEST POSITIVE FOR ISCHEMIC ST-T WAVE CHANGES 2. NO CHEST PAIN OR DISCOMFORT 3. RARE ISOLATED PVC'S WITH EXERCISE 4. BLOOD PRESSURE: SYSTOLIC HYPERTENSION WITH EXERCISE 5. HYPOKINESIA WITH EXERCISE MILDLY HYPOKINETIC INFERIOR POST WALL WITH EXERCISE MTDD
--- NOTE | 2017-10-25 08:46 | ECHOSTRESS ---
Date of Exam: 10/25/17 Ordering Physician: DR. RICHELLE HOLM/ DR. RUDI NUNES Reason for Echo: SOB, STRESS TEST--POSITIVE FOR ISCHEMIA M-Mode Normal Adult Results LV Dimensions Normal Adult Results AoV Opening excursions >1.6 LVEDD-base- 3.5-5.8 Ao root dimensions 2.0-3.7 LVESD-base- 3.1-4.6 L. Atrium dimensions 1.9-3.8 Post. Wall thickness 0.8-1.1 IV septum (thickness) 0.7-1.2 Post. Wall excursion 0.72-1.3 Septal motion Systolic motion R. Ventricular cavity 1.5-2.0 LVEF 60% Paradoxical septal wall motion 2-D: MILD INFERIOR POST WALL HYPOKINESIA WITH EXERCISE--NORMAL LEFT VENTRICULAR CONTRACTILITY WITH EXERCISE M-MODE: MV: AV: TV: PV: CHAMBER SIZE: WALL MOTION: MILD INFERIOR POST WALL HYPOKINESIA WITH EXERCISE--NORMAL LEFT VENTRICULAR CONTRACTILITY WITH EXERCISE PERICARDIUM: INTERPRETATION: 1. MILD INFERIOR POST WALL HYPOKINESIA WITH EXERCISE--NORMAL LEFT VENTRICULAR CONTRACTILITY WITH EXERCISE MTDD
== END 2017-10-25 06:27 | disposition home or self-care (01) ==
LOC: CAR 06:26
PROVIDERS: ATTEND Emergency Medicine
DX: R06.02 Shortness of breath (principal)

== ENCOUNTER 2018-02-07 05:48 | Emergency (ER) ==
[2018-02-07 06:01] VITALS: BP 143/76; TEMP 97.9; BMI 34.4
--- NOTE | 2018-02-07 06:08 | ED.PDOC ---
General ED Provider: Dr. THU VALLEJO-ER Chief Complaint: Sore Throat Stated Complaint: im coughing and i have a sore thrpat Time Seen by Physician: 05:55 Mode of Arrival: Walk-In Information Source: Patient Exam Limitations: No limitations Primary Care Provider: RICHELLE HOLM Nursing and Triage Documentation Reviewed and Agree: Yes Does patient meet sepsis criteria?: No System Inflammatory Response Syndrome: Not Applicable Sepsis Protocol: For patient's 13 years and over: Temp is 96.8 and below OR 101 and greater Pulse >90 BPM Resp >20/minute Acutely Altered Mental Status Are patient's symptoms suggestive of a new infection, such as: -Pneumonia -Skin, Soft Tissue -Endocarditis -UTI -Bone, Joint Infection -Implantable Device -Acute Abdominal Infection -Wound Infection -Meningitis -Blood Stream Catheter Infection -Unknown Respiratory Complaint Exam - Respiratory Complaint/Exam Onset/Duration: less than 24hrs Symptoms Are: Still present Timing: Constant Initial Severity: Mild Current Severity: Moderate Location: Throat, Chest Character: Reports: Non-productive cough Aggravating: Reports: URI Associated Signs and Symptoms: Reports: URI, Nasal congestion, Hoarseness, Sore throat. Denies: Rapid breathing, Dyspnea, Fever, Chills, Chest pain, Pleuritic chest pain, Wheezing, Hemoptysis, Dizziness, Calf pain, Calf swelling, Edema Related History: Reports: Similar episode Home Oxygen Use: No Recent Stress Test: No Recent Echo/LV Function: No Current Antibiotic Use: No Current Asthma Medication Use: No Respiratory Distress: None Inadequate Respiratory Effort: No Dysphagia Present: No Stridor Present: No JVD Present: No Accessory Muscle Use: No Retractions: Not Present Diminished Breath Sounds: No Sinus Tenderness: None Grunting Respirations: No Kussmaul Respirations: No Differential Diagnoses: Bronchitis Review of Systems - Review Of Systems Constitutional: Reports: No symptoms Eyes: Reports: No symptoms Ears, Nose, Mouth, Throat: Reports: Throat pain Respiratory: Reports: Cough Cardiac: Reports: No symptoms GI: Reports: No symptoms : Reports: No symptoms Musculoskeletal: Reports: No symptoms Skin: Reports: No symptoms Neurological: Reports: No symptoms Endocrine: Reports: No symptoms Hematologic/Lymphatic: Reports: No symptoms All Other Systems: Reviewed and Negative Past Medical History - Past Medical History Previously Healthy: Yes Endocrine: Reports: None Cardiovascular: Reports: None Respiratory: Reports: None Hematological: Reports: None Gastrointestinal: Reports: None Genitourinary: Reports: None Neuro/Psych: Reports: None Musculoskeletal: Reports: None Cancer: Reports: None - Surgical History General Surgical History: Reports: None - Family History Family History: Reports: None - Social History Smoking Status: Former smoker Hx Substance Use: Yes (hx marijuana) Alcohol Screening: None - Immunizations Tetanus Shot up to Date: Yes Physical Exam - Physical Exam Appearance: Well-appearing, No pain distress, Well-nourished Pain Distress: Mild Eyes: KE, EOMI, Conjunctiva clear ENT: Rhinorrhea, Erythema Neck: Supple Respiratory: Rhonchi Cardiovascular: RRR, Pulses normal, No rub, No murmur GI/: Soft, Nontender, No masses, Bowel sounds normal, No Organomegaly Musculoskeletal: Normal strength, ROM intact, No edema, No calf tenderness Skin: Warm, Dry, Normal color Neurological: Sensation intact, Motor intact, Reflexes intact, Cranial nerves intact, Alert, Oriented Psychiatric: Affect appropriate, Mood appropriate Critical Care Note - Critical Care Note Total Time (mins): 0 Course - Course Vital Signs: Temp Pulse Resp BP Pulse Ox 02/07/18 05:50 97.9 F 83 20 143/76 H 97 Departure - Departure Time of Disposition: 06:07 Disposition: HOME SELF-CARE Discharge Problem: Sore throat symptom, Bronchitis Instructions: Acute Bronchitis (ED) Condition: Good Pt referred to PMD for follow-up: No IPMP verified?: No Additional Instructions: keflex 500mg bid x 7 days---medrol dose pack--salt water gargles--recheck in 72hrs if not better Allergies/Adverse Reactions: Allergies No Known Allergies Allergy (Verified 02/07/18 05:58) Home Medications: Ambulatory Orders Aspirin [Aspirin Ec] 81 mg PO DAILY 08/02/17 Carvedilol [Coreg] 3.125 mg PO BID 02/07/18 Ipratropium [place] [Atrovent Hfa] 1 - 2 puff IH TID 02/07/18 Disposition Discussed With: Patient, Family
== END 2018-02-07 06:16 | disposition home or self-care (01) ==
LOC: ED 05:48
DX: J02.9 Acute pharyngitis, unspecified (principal); J40 Bronchitis, not specified as acute or chronic
CPT/HCPCS: 99282

== ENCOUNTER 2018-10-19 07:33 | Outpatient (CLI) | payer OTHER ==
--- NOTE | 2018-10-19 09:17 | CT ---
EXAM: CT of the chest without contrast History: Short of breath Comparison: Chest radiograph 02/08/2017, chest CT 02/05/2017 Technique: Multiplanar CT images through the thorax were obtained without the administration of IV c ontrast Findings: Heart size is normal. No pericardial effusion. No thoracic aortic aneurysm. Coronary silvia cifications. No change in the left thyroid nodule. No pathologically enlarged axillary or mediastin al lymph nodes. Evaluation for hilar lymph nodes is limited due to the lack of contrast administrati on. No consolidation. No pleural fluid and no pneumothorax. No change in the mild biapical lung sc arring. No suspicious lung masses or lung nodules. Within the visualized upper abdomen, partially visualized left renal cyst. Stable tiny cyst within t he liver. No acute osseous abnormalities. Impression: 1. No acute intrathoracic process. 2. Coronary artery disease. 3. Left thyroid nodule. Correlate with thyroid ultrasound.
== END 2018-10-19 07:34 | disposition home or self-care (01) ==
LOC: RAD 07:33
PROVIDERS: ATTEND Internal Medicine
DX: R06.02 Shortness of breath (principal)

== ENCOUNTER 2018-10-24 11:27 | Outpatient (CLI) ==
--- NOTE | 2018-10-24 17:00 | US ---
EXAM: THYROID ULTRASOUND HISTORY: Left thyroid nodule FINDINGS: Ultrasound thyroid. Real time harrison-scale ultrasound and color Doppler imaging. COMPARISON: No comparison ultrasound. The right thyroid lobe measured 4.9 x 1.9 x 2.0 cm. The isthmus measured 0.46 cm. The left thyroid lobe measured 4.1 x 2.6 x 2.2 cm. Within the inferior left lobe, there is a 2.4 x 2.2 x 2.1 cm solid hypoechoic well-defined slightly o kenya shaped nodule. It would be difficult to exclude a few internal echogenicities within the nodule on the images presented. No other nodules are seen. General blood flow to the gland is normal. IMPRESSION: 1. Prominent inferior left thyroid nodule as described. Given size and appearance, fine needle aspi ration could be considered.
== END 2018-10-24 11:28 | disposition home or self-care (01) ==
LOC: RAD 11:27
PROVIDERS: ATTEND Internal Medicine
DX: E04.1 Nontoxic single thyroid nodule (principal)

== ENCOUNTER 2021-12-06 18:48 | Inpatient (IN) ==
--- NOTE | 2021-12-06 19:22 | DI ---
EXAM: CHEST FRONTAL AND LATERAL VIEWS HISTORY: Shortness of breath COMPARISON: 02/08/2017 FINDINGS: Heart size and mediastinal contour remain within normal limits. No acute infiltrates. Normal vascularity with no pleural fluid or pneumothorax. The bony thorax has no acute finding. IMPRESSION: No acute cardiopulmonary process.
[2021-12-06 19:24] LABS: BASOPHILS # (AUTO) 0.1 K/uL (0-0.2); BASOPHILS % (AUTO) 0.8 % (0.0-3.0); EOSINOPHILS # (AUTO) 0.2 K/ul (0.0-0.7); EOSINOPHILS % (AUTO) 2.1 % (0.0-7.0); HEMATOCRIT 40.6 % (42.0-52.0); HEMOGLOBIN 13.2 g/dl (14.0-18.0); IMMATURE GRANULOCYTE % (AUTO) 0.1 % (0.0-5.0); LYMPHOCYTES # (AUTO) 1.6 K/uL (0.60-3.4); LYMPHOCYTES % (AUTO) 22.4 (10.0-50.0); MEAN CORPUSCULAR HEMOGLOBIN 28.9 pg (27.0-31.0); MEAN CORPUSCULAR HGB CONC 32.5 (31.8-35.4); MEAN CORPUSCULAR VOLUME 88.8 fl (80.0-94.0); MONOCYTES # (AUTO) 0.9 K/uL (0.4-2.0); MONOCYTES % (AUTO) 12.4 (0-10); NEUTROPHILS # (AUTO) 4.4 K/ul (2.0-6.9); NEUTROPHILS % (AUTO) 62.2 % (42.2-75.2); PLATELET COUNT 221 10^3/uL (140-440); RDW COEFFICIENT OF VARIATION 13.3 % (11.6-14.8); RED BLOOD COUNT 4.57 10^6/ul (4.70-6.10); WHITE BLOOD COUNT 7.15 K/ul (4.2-10.2)
[2021-12-06 19:41] LABS: ALANINE AMINOTRANSFERASE 19.7 U/L (0-50); ALBUMIN 4.26 g/dL (3.5-5.0); ALKALINE PHOSPHATASE 82.7 U/L (56-119); ASPARTATE AMINO TRANSFERASE 24.8 U/L (17-59); BILIRUBIN,TOTAL 0.47 mg/dL (0.2-1.3); BLOOD UREA NITROGEN 20.7 mg/dL (9-20); CALCIUM 9.89 mg/dL (8.4-10.2); CARBON DIOXIDE 27.9 mmol/L (22-30.0); CHLORIDE 100.2 mmol/L (98-107); CREATINE KINASE 60.2 U/L (55-170); CREATININE 1.14 mg/dL (0.60-1.10); GLUCOSE 126.2 mg/dL (74-106); POTASSIUM 4.13 mmol/L (3.5-5.1); SODIUM 136.6 mmol/L (134.5-145); TOTAL PROTEIN 7.71 g/dL (6.3-8.2)
[2021-12-06] MEDS ORDERED: DUONEB NEB STA ×2 (19:50→20:59)
[2021-12-06] MEDS ORDERED: SOLU-MEDROL 125 MG IVP STA (19:50)
[2021-12-06 19:55] LABS: TROPONIN I < 0.012 ng/ml (0.0000-0.120)
--- NOTE | 2021-12-06 19:57 | ED.PDOC ---
General ED Provider: Dr. AMBER DE LA TORRE Chief Complaint: Shortness of Air Stated Complaint: Patient is a 71 year old chronic smoker who continues to smoke 2 1/2 ppd comes to the ER with a 2-3 day history of increased shortness of breath with minimal activity like showring. Has been using his Steroid inhaler and hand Albuterol inhaler. Does not have an Nebulizer or oxygen at home. He quit smoking a while back for 17 months then started again after some stressful issues in h is life. He is willing to try quitting again. Had one COVID vaccine and not had the current flu vaccination and no Pneumovacc. Time Seen by Provider: 12/06/21 19:09 Mode of Arrival: Walk-In Information Source: Patient Primary Care Provider: RICHELLE HOLM Nursing and Triage Documentation Reviewed and Agree: Yes Does patient meet sepsis criteria?: No System Inflammatory Response Syndrome: Not Applicable Sepsis Protocol: For patient's 13 years and over: Temp is 96.8 and below OR 101 and greater Pulse >90 BPM Resp >20/minute Acutely Altered Mental Status Are patient's symptoms suggestive of a new infection, such as: -Pneumonia -Skin, Soft Tissue -Endocarditis -UTI -Bone, Joint Infection -Implantable Device -Acute Abdominal Infection -Wound Infection -Meningitis -Blood Stream Catheter Infection -Unknown Respiratory Complaint Exam Shortness of Air Complaint/Exam Onset/Duration: 3 days Symptoms Are: Still present Timing: Constant Initial Severity: Moderate Current Severity: Severe Character: Reports Dyspnea on exertion (minimam) Aggravating: Reports Movement and Deep breaths Alleviating: Reports None Associated Signs and Symptoms: Reports Cough and Wheezing Related History: Reports Similar episode (COPD) Pulmonary Embolism Risk Factors: Reports Smoking Cardiac Risk Factors: Reports Smoking Pseudomonas Risk Factors: Reports Chronic Lung Disease Recent Stress Test: No Recent Echo/LV Function: No Stridor Present: No Tracheal Deviation: No Subcutaneous Emphysema: No Accessory Muscle Use: Yes Retractions: Not Present Diminished Breath Sounds: Yes Prolonged Expiratory Phase: Yes Unable to Speak Full Sentences: Yes Fatigue: No Leg Swelling: No Mark's Sign Present: No Grunting Respirations: No Kussmaul Respirations: No Differential Diagnoses: COPD Exacerbation Quality Indicator For Non-Traumatic Chest Pain/Syncope: EKG Performed (normal ) Review of Systems Review Of Systems Constitutional: Reports No symptoms Respiratory: Reports Cough and Short of air Cardiac: Reports No symptoms GI: Reports No symptoms : Reports No symptoms Skin: Reports No symptoms Neurological: Reports Anxiety All Other Systems: Reviewed and Negative [facility] Medical History (Updated 12/06/21 @ 22:41 by JOANN MONK RN) Bladder cancer Foot fracture, left Family History FATHER No problems noted. Mother Dementia Cardiac disease Other Leukemia Lyme disease Social History (Updated 12/06/21 @ 22:28 by MELISSA GILL RN) Smoking and tobacco status: Current every day smoker Tobacco: How many years used: 51 Surgical History History of genitourinary surgery History of inguinal hernia repair History of tonsillectomy and adenoidectomy Physical Exam Physical Exam Appearance: Reports Ill-appearing Ill-appearing: Mild Pain Distress: None Eyes: Reports KE, EOMI and Conjunctiva clear ENT: Reports Nose normal and Oropharynx normal Neck: Not Examined Respiratory: Reports Breath sounds diminished and Wheezes Cardiovascular: Reports RRR and Pulses normal GI/: Reports Not Examined Musculoskeletal: Reports Normal strength, ROM intact and No edema Skin: Reports Warm, Dry and Normal color Neurological: Reports Motor intact, Alert and Oriented Psychiatric: Reports Anxious Interpretation Radiology Interpretation Radiology Interpretation By: Radiologist Radiology Results: Negative ( No acute cardiopulmonary process.) Exam Interpreted: CXR EKG Interpretation Time of EKG #1: 19:21 Rate: Normal Rhythm: Sinus Ectopy: None [place]: [place] ST Segment: Normal Interpretation: normal EKG Critical Care Note Critical Care Note Total Critical Care Time (mins): 0 Course Course Hematology/Chemistry: 12/06/21 19:20 12/06/21 19:20 Orders, Labs, Meds: Lab Review 12/06/21 12/06/21 12/06/21 19:09 19:20 19:20 WBC 7.15 RBC 4.57 L Hgb 13.2 L Hct 40.6 L MCV 88.8 MCH 28.9 MCHC 32.5 RDW Coeff of Karen 13.3 Plt Count 221 Immature Gran % (Auto) 0.1 Neut % (Auto) 62.2 Lymph % (Auto) 22.4 [place] % (Auto) 12.4 H Eos % (Auto) 2.1 Baso % (Auto) 0.8 Neut # (Auto) 4.4 Lymph # (Auto) 1.6 [place] # (Auto) 0.9 Eos # (Auto) 0.2 Baso # (Auto) 0.1 Immature Gran # (Auto) 0.0 Puncture Site [place] Excess 4.2 H O2 Saturation 93.3 L ABG pH 7.43 ABG pCO2 43.0 ABG pO2 66.0 L ABG HCO3 28.5 H ABG Total CO2 29.8 H Gabriel Test + Hemoglobin 1.4 Oxyhemoglobin 91.2 L Carboxyhemoglobin 2.8 H Total Hemoglobin 13.7 Sodium 136.6 Potassium 4.13 Chloride 100.2 Carbon Dioxide 27.9 Anion Gap 12.63 BUN 20.7 H Creatinine 1.14 H Estimated GFR (MDRD) 64.00 BUN/Creatinine Ratio 18.15 Glucose 126.2 H Lactic Acid Calcium 9.89 Total Bilirubin 0.47 AST 24.8 ALT 19.7 Alkaline Phosphatase 82.7 Total Creatine Kinase 60.2 Troponin I < 0.012 NT-Pro-B Natriuret Pep 44.500 Total Protein 7.71 Albumin 4.26 Globulin 3.45 Albumin/Globulin Ratio 1.23 Procalcitonin Influ A Molecular Assay Influ B Molecular Assay SARS CoV-2 RNA Rapid NANCY 12/06/21 12/06/21 12/06/21 19:20 19:20 20:15 WBC RBC Hgb Hct MCV MCH MCHC RDW Coeff of Karen Plt Count Immature Gran % (Auto) Neut % (Auto) Lymph % (Auto) [place] % (Auto) Eos % (Auto) Baso % (Auto) Neut # (Auto) Lymph # (Auto) [place] # (Auto) Eos # (Auto) Baso # (Auto) Immature Gran # (Auto) Puncture Site Base Excess O2 Saturation ABG pH ABG pCO2 ABG pO2 ABG HCO3 ABG Total CO2 Gabriel Test Hemoglobin Oxyhemoglobin Carboxyhemoglobin Total Hemoglobin Sodium Potassium Chloride Carbon Dioxide Anion Gap BUN Creatinine Estimated GFR (MDRD) BUN/Creatinine Ratio Glucose Lactic Acid 0.93 Calcium Total Bilirubin AST ALT Alkaline Phosphatase Total Creatine Kinase Troponin I NT-Pro-B Natriuret Pep Total Protein Albumin Globulin Albumin/Globulin Ratio Procalcitonin < 0.05 Influ A Molecular Assay Influ B Molecular Assay SARS CoV-2 RNA Rapid NANCY Negative 12/06/21 20:15 WBC RBC Hgb Hct MCV MCH MCHC RDW Coeff of Karen Plt Count Immature Gran % (Auto) Neut % (Auto) Lymph % (Auto) [place] % (Auto) Eos % (Auto) Baso % (Auto) Neut # (Auto) Lymph # (Auto) [place] # (Auto) Eos # (Auto) Baso # (Auto) Immature Gran # (Auto) Puncture Site Base Excess O2 Saturation ABG pH ABG pCO2 ABG pO2 ABG HCO3 ABG Total CO2 Gabriel Test Hemoglobin Oxyhemoglobin Carboxyhemoglobin Total Hemoglobin Sodium Potassium Chloride Carbon Dioxide Anion Gap BUN Creatinine Estimated GFR (MDRD) BUN/Creatinine Ratio Glucose Lactic Acid Calcium Total Bilirubin AST ALT Alkaline Phosphatase Total Creatine Kinase Troponin I NT-Pro-B Natriuret Pep Total Protein Albumin Globulin Albumin/Globulin Ratio Procalcitonin Influ A Molecular Assay Negative by naat Influ B Molecular Assay Negative by naat SARS CoV-2 RNA Rapid NANCY Orders Category Date Time Status ADMIT PATIENT INPATIENT .TO [facility] (MONITORED BED) ADMISSION 12/06/21 21:17 Active ABG DRAW REQUEST Stat CARDIO 12/06/21 19:03 Completed EKG-(ED ONLY) Stat CARDIO 12/06/21 19:03 Completed NEBULIZER TREATMENT Routine CARDIO 12/06/21 21:20 Ordered NEBULIZER TREATMENT Stat CARDIO 12/06/21 19:50 Completed NEBULIZER TREATMENT Stat CARDIO 12/06/21 21:03 Completed OXYGEN Routine CARDIO 12/06/21 21:17 Ordered ACTIVITY .Up ad Joan CARE 12/06/21 21:19 Active BLOOD GLUCOSE MONITORING (MED/SURG) 0630,1100,1700,2100 CARE 12/06/21 21:20 Ac tive GIVE HS SNACK 2100 CARE 12/06/21 21:19 Active INTAKE & OUTPUT Q8HR CARE 12/06/21 21:17 Active TELEMETRY MONITORING TELE CARE 12/06/21 21:18 Active VITAL SIGNS Q4HR CARE 12/06/21 21:18 Active ADA 1800 HIEU. DIET DIETARY 12/06/21 Breakfast Ordered HS SNACK DIETARY 12/06/21 Dinner Ordered ED SOCIAL STUDIES TEACHER APPLIED .ONCE EMERGENCY 12/06/21 19:03 Active ED IV/MEDIPORT/POWERPORT .ONCE EMERGENCY 12/06/21 19:03 Active ABG COOX Stat LAB 12/06/21 19:09 Completed BLOOD CULTURE (ED ONLY) Stat LAB 12/06/21 19:20 Received CBC W/ AUTO DIFF DAILY@0600 LAB 12/07/21 06:00 Ordered CBC W/ AUTO DIFF DAILY@0600 LAB 12/08/21 06:00 Ordered CBC W/ AUTO DIFF Stat LAB 12/06/21 19:20 Completed COMPREHENSIVE METABOLIC PANEL DAILY@0600 LAB 12/07/21 06:00 Ordered COMPREHENSIVE METABOLIC PANEL DAILY@0600 LAB 12/08/21 06:00 Ordered COMPREHENSIVE METABOLIC PANEL Stat LAB 12/06/21 19:20 Completed CREATINE KINASE Stat LAB 12/06/21 19:20 Completed FLU A & B MOLECULAR [FLU A/B MOLECULAR] Stat LAB 12/06/21 20:15 Completed LACTIC ACID Stat LAB 12/06/21 19:20 Completed NT-PROBNP Stat LAB 12/06/21 19:20 Completed PROCALCITONIN Stat LAB 12/06/21 19:20 Completed SARS COV-2 RNA RAPID NANCY Stat LAB 12/06/21 20:15 Completed TROPONIN I Stat LAB 12/06/21 19:20 Completed 0.9 % Sodium Chloride [Saline Flush] MEDS 12/06/21 19:03 Active 1 syr IVF PRN PRN Acetaminophen [Tylenol] MEDS 12/06/21 21:17 Active 650 mg PO Q4H PRN Azithromycin Inj [Zithromax] 500 mg MEDS 12/06/21 23:00 Active 0.9 % Sodium Chloride [Sodium Chloride] 250 ml IV DAILY Ceftriaxone/D5w 1 gm Premix [Rocephin 1 gm/50 ml D5w] MEDS 12/07/21 09:00 Active 1 gm in 50 ml IV DAILY Ceftriaxone/D5w 1 gm Premix [Rocephin 1 gm/50 ml D5w] MEDS 12/06/21 21:17 Discontinued 1 gm in 50 ml IV ONCE Enoxaparin Sodium [Lovenox] MEDS 12/07/21 09:00 Active 40 mg SUBCUT DAILY Insulin Regular, Human [Humulin R] MEDS 12/06/21 21:17 Active See Protocol SUBCUT PRN PRN Ipratropium/Albuterol Neb [Duoneb] MEDS 12/06/21 19:50 Discontinued 3 ml NEB ONCE STA Ipratropium/Albuterol Neb [Duoneb] MEDS 12/06/21 20:59 Discontinued 3 ml NEB ONCE STA Ipratropium/Albuterol Neb [Duoneb] MEDS 12/06/21 22:00 Active 3 ml NEB RTQ4H Methylprednisolone Sod Succ/Pf [Solu-Medrol 125 mg] MEDS 12/06/21 19:50 Discontinued 125 mg IVP ONCE STA Ondansetron HCl/Pf [Zofran 4 mg/2 ml] MEDS 12/06/21 21:17 Active 4 mg IVP Q6H PRN Sodium Chloride 0.9% [Sodium Chloride] 1,000 ml MEDS 12/06/21 21:30 Active IV 75 mls/hr RESUSCITATION STATUS Routine OTHERS 12/06/21 21:17 Ordered CHEST, 2 VIEWS PA & LAT Stat RADS 12/06/21 19:03 Completed Medications Generic Name Dose Route Start Last Admin Trade Name Freq PRN Reason Stop Dose Admin Acetaminophen 650 mg 12/06/21 21:17 Acetaminophen 325 Mg Tablet PO Q4H PRN Fever and Mild Pain Albuterol/Ipratropium 3 ml 12/06/21 22:00 12/06/21 22:45 Ipratropium/Albuterol Vial.Neb NEB Not Given RTQ4H YNES Aspirin 81 mg 12/07/21 09:00 Aspirin 81 Mg Tablet.Dr PO DAILY [facility] Carvedilol 3.125 mg 12/07/21 09:00 Carvedilol 3.125 Mg Tablet PO BID [facility] Enoxaparin Sodium 40 mg 12/07/21 09:00 Enoxaparin Sodium 40 Mg/0.4 Ml Syr SUBCUT DAILY [facility] Famotidine 40 mg 12/07/21 09:00 Famotidine 20 Mg Tablet PO DAILY [facility] Furosemide 40 mg 12/07/21 09:00 Furosemide 20 Mg Tablet PO DAILY [facility] Sodium Chloride 1,000 mls @ 75 mls/hr 12/06/21 21:30 12/06/21 21:53 Sodium Chloride IV 75 mls/hr .[id number] YNES Administration CEFTRIAXONE/D5W 1 GM PREMIX 1 gm in 50 mls @ 75 mls/hr 12/07/21 09:00 Rocephin 1 Gm/50 Ml D5w IV 12/10/21 08:59 DAILY YNES Azithromycin 500 mg/ Sodium 250 mls @ 125 mls/hr 12/06/21 23:00 12/06/21 23:11 Chloride IV 12/09/21 22:59 125 mls/hr DAILY YNES Administration Insulin Human Regular 0 unit 12/06/21 21:17 Insulin Regular, Human 100 Unit/Ml (3ml) Vial SUBCUT PRN PRN Hyperglycemia Protocol Lisinopril 10 mg 12/07/21 09:00 Lisinopril 10 Mg Tablet PO DAILY YNES Lovastatin 20 mg 12/07/21 09:00 Lovastatin 20 Mg Tablet PO DAILY YNES Metformin HCl 500 mg 12/07/21 09:00 Metformin Hcl 500 Mg Tablet PO BID YNES Methylprednisolone Sodium Succinate 125 mg 12/07/21 00:00 Methylprednisolone Sod Succ/Pf 125 Mg/2 Ml Vial IVP Q6HR YNES Ondansetron HCl 4 mg 12/06/21 21:17 Ondansetron Hcl/Pf 4 Mg/2 Ml Sdv IVP Q6H PRN Nausea / Vomiting Potassium Chloride 20 meq 12/07/21 09:00 Potassium Chloride 20 Meq Tab PO DAILY YNES Sodium Chloride 1 syr 12/06/21 19:03 0.9% Sodium Chloride 10 Ml Disp.Syrin IVF PRN PRN To flush IV Discontinued Medications Generic Name Dose Route Start Last Admin Trade Name Freq PRN Reason Stop Dose Admin Albuterol/Ipratropium 3 ml 12/06/21 19:50 12/06/21 19:55 Ipratropium/Albuterol Vial.[facility] [facility] 12/06/21 19:51 3 ml ONCE STA Administration Albuterol/Ipratropium 3 ml 12/06/21 20:59 12/06/21 21:05 Ipratropium/Albuterol Vial.[facility] 12/06/21 21:00 3 ml ONCE STA Administration CEFTRIAXONE/D5W 1 GM PREMIX 1 gm in 50 mls @ 75 mls/hr 12/06/21 21:17 12/06/21 21:51 Rocephin 1 Gm/50 Ml D5w IV 12/06/21 21:56 75 mls/hr ONCE STA Administration Methylprednisolone Sodium Succinate 125 mg 12/06/21 19:50 12/06/21 20:24 Methylprednisolone Sod Succ/Pf 125 Mg/2 Ml Vial IVP 12/06/21 19:51 125 mg ONCE STA Administration Vital Signs: Temp Pulse Resp BP Pulse Ox 12/06/21 18:50 98 F 82 20 136/75 93 L Discharge Plan Discharge Patient Disposition: ADMITTED INPATIENT Discharge Problem: COPD exacerbation Did you review [place] QUALITY COMPLIANCE COORDINATOR?: Not Applicable ED Provider: AMBER DE LA TORRE Condition: Good Physician Progress Note: []
[2021-12-06 20:23] LABS: ABG PH 7.43 (7.35-7.45)
[2021-12-06 20:24] LABS: BEecf 4.2 (-2.0-3.0); COHb 2.8 (0.5-1.5); HCO3 28.5 (21-28); MetHb 1.4 (0-1.5); TCO2 29.8 (19-24); sO2 93.3 % (94-98); tHb 13.7 g/dl (11.7-17.4)
[2021-12-06 20:25] LABS: ABG O2 HGB 91.2 % (95-100)
[2021-12-06 20:40] LABS: MOLECULAR FLU A NEGATIVE BY NAAT (NEGATIVE); MOLECULAR FLU B NEGATIVE BY NAAT (NEGATIVE)
[2021-12-06] MEDS ORDERED: TYLENOL PO PRN (21:17)
[2021-12-06] MEDS ORDERED: ROCEPHIN 1 GM/50 ML D5W 1 GM/50 ML BAG IV STA (21:17)
[2021-12-06] MEDS ORDERED: ZOFRAN 4 MG/2 ML IVP PRN (21:17)
[2021-12-06] MEDS ORDERED: SODIUM CHLORIDE 1,000 ML IV SCH (21:30)
[2021-12-06] MEDS: DUONEB NEB SCH (22:45)
[2021-12-06 22:56] VITALS: BMI 31.4
[2021-12-06] MEDS ORDERED: ZITHROMAX 500 MG in SODIUM CHLORIDE 250 ML IV SCH (23:00)
[2021-12-07] MEDS: SOLU-MEDROL 125 MG IVP SCH ×4 (01:00→20:18)
[2021-12-07] MEDS: DUONEB NEB SCH ×6 (02:05→21:25)
[2021-12-07 05:24] LABS: BASOPHILS % (AUTO) 0.2 % (0.0-3.0); HEMATOCRIT 36.6 % (42.0-52.0); HEMOGLOBIN 12.2 g/dl (14.0-18.0); IMMATURE GRANULOCYTE % (AUTO) 0.2 % (0.0-5.0); LYMPHOCYTES # (AUTO) 0.8 K/uL (0.60-3.4); LYMPHOCYTES % (AUTO) 13.8 (10.0-50.0); MEAN CORPUSCULAR HEMOGLOBIN 29.8 pg (27.0-31.0); MEAN CORPUSCULAR HGB CONC 33.3 (31.8-35.4); MEAN CORPUSCULAR VOLUME 89.3 fl (80.0-94.0); MONOCYTES # (AUTO) 0.1 K/uL (0.4-2.0); MONOCYTES % (AUTO) 1.3 (0-10); NEUTROPHILS # (AUTO) 4.7 K/ul (2.0-6.9); NEUTROPHILS % (AUTO) 84.5 % (42.2-75.2); PLATELET COUNT 210 10^3/uL (140-440); RDW COEFFICIENT OF VARIATION 13.2 % (11.6-14.8); WHITE BLOOD COUNT 5.51 K/ul (4.2-10.2)
[2021-12-07 05:35] LABS: ALANINE AMINOTRANSFERASE 19.8 U/L (0-50); ALBUMIN 3.9 g/dL (3.5-5.0); ALKALINE PHOSPHATASE 73.9 U/L (56-119); ASPARTATE AMINO TRANSFERASE 25.3 U/L (17-59); BILIRUBIN,TOTAL 0.35 mg/dL (0.2-1.3); BLOOD UREA NITROGEN 23.4 mg/dL (9-20); CALCIUM 9.48 mg/dL (8.4-10.2); CARBON DIOXIDE 26.3 mmol/L (22-30.0); CHLORIDE 101.6 mmol/L (98-107); CREATININE 1.04 mg/dL (0.60-1.10); GLUCOSE 223.7 mg/dL (74-106); POTASSIUM 4.46 mmol/L (3.5-5.1); SODIUM 135.9 mmol/L (134.5-145); TOTAL PROTEIN 6.97 g/dL (6.3-8.2)
[2021-12-07] MEDS: HUMULIN R SUBCUT PRN ×4 (06:32→21:00)
[2021-12-07] MEDS ORDERED: ZESTRIL PO SCH (09:00)
[2021-12-07] MEDS ORDERED: LOVENOX SUBCUT SCH (09:00)
[2021-12-07] MEDS ORDERED: LASIX TAB PO SCH (09:00)
[2021-12-07] MEDS: ASPIRIN EC PO SCH (09:15)
[2021-12-07] MEDS: MEVACOR PO SCH (09:16)
[2021-12-07] MEDS: COREG PO SCH ×2 (09:16→17:32)
[2021-12-07] MEDS: PEPCID PO SCH ×2 (09:16→12:50)
[2021-12-07] MEDS: GLUCOPHAGE PO SCH ×2 (09:16→17:32)
[2021-12-07] MEDS: LASIX TAB PO SCH (09:16)
[2021-12-07] MEDS: K-DUR PO SCH (09:16)
[2021-12-07] MEDS: SYMBICORT 160-4.5 MCG INHALER IH SCH ×2 (09:17→20:46)
--- NOTE | 2021-12-07 09:40 | PCM.PROG ---
Attending Provider: ATTENDING PROVIDER: Dr. RICHELEL HOLM This patient is seen with Xenia Mullins, Nurse Practitioner. DATE OF SERVICE: 12/07/21 SUBJECTIVE: This 71 year old /WHITE M was hospitalized 12/06/21. Feeling much less short of breath this morning. Steroids have improved his breathing. He had been coughing for several days requiring albuterol inhaler ever 1-2 hours. REVIEW OF SYSTEMS: CONSTITUTIONAL: No night sweats. No fatigue, malaise, lethargy. No fever or chills. HEENT: Eyes: No visual changes. No eye pain. No eye discharge. ENT: No runny nose. No epistaxis. No sinus pain. No odynophagia. No congestion. RESPIRATORY: Cough, no congestion. No hemoptysis. Shortness of breath. CARDIOVASCULAR: No angina symptoms. No CHF symptoms. No atypical chest pain for CAD. No palpitations. No orthopnea.. GASTROINTESTINAL: No abdominal pain. No nausea or vomiting. No diarrhea or constipation. No hematemesis. No hematochezia. GENITOURINARY: No urgency. No frequency. No dysuria. No hematuria. No obstructive symptoms. No discharge. No pain. No significant abnormal bleeding. MUSCULOSKELETAL: No musculoskeletal pain; no joint swelling. NEUROLOGICAL: Awake, alert, oriented to time, place and person. No headache. No neck pain. No syncope. No seizures. No dizziness. PSYCHIATRIC: Not anxious. No depression. No suicidal thoughts. No homicidal thoughts. SKIN: No rash. No lesions. No wounds. ENDOCRINE: No unexplained weight loss. No weight gain. HEMATOLOGIC/LYMPHATIC: No anemia. No purpura. No petechiae. No prolonged or excessive bleeding. No palpable lymph nodes. PHYSICAL EXAMINATION: GENERAL: The patient is awake, alert and oriented, sitting in bed in no distress. VITAL SIGNS: Temperature 97.9 F, Pulse 66, Respiratory Rate 18, BP 121/70, Pulse Ox 97% HEENT: Head normocephalic, atraumatic. Eyes: Extraocular muscles are intact. Pupils are equal, round and reactive to light and accommodation. Ears: No lesions. Nose appeared normal. Throat: No exudate or erythema. NECK: Supple. No JVD, no carotid bruit. No lymphadenopathy or thyromegaly. LUNGS: Severely diminished breath sounds. Clear to auscultation. Percussion note normal. Chest symmetrical. HEART: S1, S2, no S3. No murmurs. No cyanosis or clubbing. No ascites. Pulses: Dorsalis pedis and posterior tibial pulses +1 to +2 both sides. ABDOMEN: Soft. Non-tender. Bowel sounds active. No CVA tenderness. No mass felt. EXTREMITIES: No edema. Full range of motion of all extremities, equal. NEUROLOGIC: No focal deficit. Cranial nerves II through XII are grossly intact. No headache. No double vision. SKIN: Not dry. Intact. Turgor-normal. LYMPHATIC: No palpable lymph nodes/no lymphedema. MUSCULOSKELETAL: Normal joints with no swelling. Muscle tone is normal. LAB REVIEW: 12/07/21 05:05 12/07/21 05:05 12/07/21 05:05: Sodium 135.9, Potassium 4.46, Chloride 101.6, Carbon Dioxide 26.3, Anion Gap 12.46, BUN 23.4 H, Creatinine 1.04, Estimated GFR (MDRD) 71.00, BUN/Creatinine Ratio 22.50, Glucose 223.7 H D, Calcium 9.48, Total Bilirubin 0.35, AST 25.3, ALT 19.8, Alkaline Phosphatase 73.9, Total Protein 6.97, Albumin 3.90, Globulin 3.07, Albumin/Globulin Ratio 1.27 12/07/21 05:05: WBC 5.51, RBC 4.10 L, Hgb 12.2 L, Hct 36.6 L, MCV 89.3, MCH 29.8, MCHC 33.3, RDW Coeff of Karen 13.2, Plt Count 210, Immature Gran % (Auto) 0.2, Neut % (Auto) 84.5 H, Lymph % (Auto) 13.8, Talbot % (Auto) 1.3, Eos % (Auto) 0.0, Baso % (Auto) 0.2, Neut # (Auto) 4.7, Lymph # (Auto) 0.8, Talbot # (Auto) 0.1 L, Eos # (Auto) 0.0, Baso # (Auto) 0.0, Immature Gran # (Auto) 0.0 12/06/21 20:15: Influ A Molecular Assay Negative by naat, Influ B Molecular Assay Negative by naat 12/06/21 20:15: SARS CoV-2 RNA Rapid NANCY Negative 12/06/21 19:20: Procalcitonin < 0.05 12/06/21 19:20: Lactic Acid 0.93 12/06/21 19:20: Sodium 136.6, Potassium 4.13, Chloride 100.2, Carbon Dioxide 27.9, Anion Gap 12.63, BUN 20.7 H, Creatinine 1.14 H, Estimated GFR (MDRD) 64.00, BUN/Creatinine Ratio 18.15, Glucose 126.2 H, Calcium 9.89, Total Bilirubin 0.47, AST 24.8, ALT 19.7, Alkaline Phosphatase 82.7, Total Creatine Kinase 60.2, Troponin I < 0.012, NT-Pro-B Natriuret Pep 44.500, Total Protein 7.71, Albumin 4.26, Globulin 3.45, Albumin/Globulin Ratio 1.23 12/06/21 19:20: WBC 7.15, RBC 4.57 L, Hgb 13.2 L, Hct 40.6 L, MCV 88.8, MCH 28.9, MCHC 32.5, RDW Coeff of Karen 13.3, Plt Count 221, Immature Gran % (Auto) 0.1, Neut % (Auto) 62.2, Lymph % (Auto) 22.4, Talbot % (Auto) 12.4 H, Eos % (Auto) 2.1, Baso % (Auto) 0.8, Neut # (Auto) 4.4, Lymph # (Auto) 1.6, Talbot # (Auto) 0.9, Eos # (Auto) 0.2, Baso # (Auto) 0.1, Immature Gran # (Auto) 0.0 12/06/21 19:09: Puncture Site Lrad, Base Excess 4.2 H, O2 Saturation 93.3 L, ABG pH 7.43, ABG pCO2 43.0, ABG pO2 66.0 L, ABG HCO3 28.5 H, ABG Total CO2 29.8 H, Gabriel Test +, Hemoglobin 1.4, Oxyhemoglobin 91.2 L, Carboxyhemoglobin 2.8 H, Total Hemoglobin 13.7 ASSESSMENT: Please see below. 1. Acute COPD exacerbation 2. Mild dehydration 3. Shortness of breath 4. Smoker PLAN: 1. Symbicort inhaler 160mg two puffs BID 2. Discontinue IV Fluids 3. Decrease Solu-Medrol Q 12 hours 4. Continue IV antibiotics 5. Discontinue Lovenox. Plan and coordination of the patient's care discussed in the presence of Development Trainer and nurse. SCRIBED BY: Nigel GRIFFIN scribed while in presence of service performed by Dr. Holm/Xenia Mullins APRN on 12/07/21 ([id number])
[2021-12-07] MEDS: ROCEPHIN 1 GM/50 ML D5W 1 GM/50 ML BAG IV SCH (09:42)
--- NOTE | 2021-12-07 14:31 | PN ---
DATE OF SERVICE: 12/07/21 SUBJECTIVE: The patient was seen and examined with the Nurse Practitioner. The patient's condition has improved. The patient's lungs has good air entry with practically no wheezing. Heart has S1, S2, no S3. Explained about the patient's COPD exacerbation. Counseling for smoking done. Continue steroids and antibiotics. We may end up doing echo if it is not done in past one year. Cardiovascular status seems to be stable. TIME SPENT: More than 30 minutes. Plan and coordination of the patient's care discussed in the presence of nurse. PALOMO
[2021-12-07] MEDS ORDERED: PEPCID PO SCH (17:00)
[2021-12-07] MEDS ORDERED: ZITHROMAX 500 MG in SODIUM CHLORIDE 250 ML IV SCH (21:00)
[2021-12-08] MEDS: DUONEB NEB SCH ×2 (02:05→05:31)
[2021-12-08 05:01] LABS: HEMATOCRIT 35.2 % (42.0-52.0); HEMOGLOBIN 11.8 g/dl (14.0-18.0); IMMATURE GRANULOCYTE % (AUTO) 0.3 % (0.0-5.0); LYMPHOCYTES % (AUTO) 8.1 (10.0-50.0); MEAN CORPUSCULAR HEMOGLOBIN 29.6 pg (27.0-31.0); MEAN CORPUSCULAR HGB CONC 33.5 (31.8-35.4); MEAN CORPUSCULAR VOLUME 88.4 fl (80.0-94.0); MONOCYTES # (AUTO) 0.6 K/uL (0.4-2.0); MONOCYTES % (AUTO) 4.7 (0-10); NEUTROPHILS # (AUTO) 11.2 K/ul (2.0-6.9); NEUTROPHILS % (AUTO) 86.9 % (42.2-75.2); PLATELET COUNT 245 10^3/uL (140-440); RDW COEFFICIENT OF VARIATION 13.2 % (11.6-14.8); RED BLOOD COUNT 3.98 10^6/ul (4.70-6.10); WHITE BLOOD COUNT 12.87 K/ul (4.2-10.2)
[2021-12-08 05:09] VITALS: TEMP 97.3
[2021-12-08 05:20] LABS: ALANINE AMINOTRANSFERASE 28.6 U/L (0-50); ALBUMIN 3.66 g/dL (3.5-5.0); ALKALINE PHOSPHATASE 65.8 U/L (56-119); ASPARTATE AMINO TRANSFERASE 28.4 U/L (17-59); BILIRUBIN,TOTAL 0.27 mg/dL (0.2-1.3); BLOOD UREA NITROGEN 27.1 mg/dL (9-20); CALCIUM 9.35 mg/dL (8.4-10.2); CARBON DIOXIDE 23.4 mmol/L (22-30.0); CREATININE 0.98 mg/dL (0.60-1.10); GLUCOSE 265.8 mg/dL (74-106); POTASSIUM 4.56 mmol/L (3.5-5.1); SODIUM 136.1 mmol/L (134.5-145); TOTAL PROTEIN 6.56 g/dL (6.3-8.2)
[2021-12-08] MEDS: LASIX TAB PO SCH (05:37)
[2021-12-08] MEDS: HUMULIN R SUBCUT PRN (05:37)
[2021-12-08 07:20] VITALS: BP 129/61
[2021-12-08] MEDS: ASPIRIN EC PO SCH (07:58)
[2021-12-08] MEDS: GLUCOPHAGE PO SCH (07:58)
[2021-12-08] MEDS: K-DUR PO SCH (07:58)
[2021-12-08] MEDS: MEVACOR PO SCH (07:59)
[2021-12-08] MEDS: COREG PO SCH (07:59)
[2021-12-08] MEDS ORDERED: ZITHROMAX PO ONE (08:11)
[2021-12-08] MEDS ORDERED: ROCEPHIN 1 GM VIAL IM ONE (08:16)
[2021-12-08] MEDS ORDERED: LIDOCAINE HCL 1% SDV IM ONE (08:16)
[2021-12-08] MEDS: ROCEPHIN 1 GM/50 ML D5W 1 GM/50 ML BAG IV SCH (08:17)
[2021-12-08] MEDS: SOLU-MEDROL 125 MG IVP SCH (08:46)
[2021-12-08] MEDS ORDERED: ZESTRIL PO SCH (09:00)
[2021-12-08] MEDS ORDERED: PREVNAR 20 SYRINGE IM ONE (09:00)
[2021-12-08] MEDS ORDERED: FLUZONE HIGH-DOSE QUAD 2022-23 IM ONE (09:00)
--- NOTE | 2021-12-08 09:02 | PCM.PROG ---
Attending Provider: ATTENDING PROVIDER: Dr. RICHELLE HOLM This patient is seen with Xenia Mullins, Nurse Practitioner. DATE OF SERVICE: 12/08/21 SUBJECTIVE: This 71 year old /WHITE M was hospitalized 12/06/21. On room air this morning. Up and about adamant about going home. Oxygen saturation is 97%. REVIEW OF SYSTEMS: CONSTITUTIONAL: No night sweats. No fatigue, malaise, lethargy. No fever or chills. HEENT: Eyes: No visual changes. No eye pain. No eye discharge. ENT: No runny nose. No epistaxis. No sinus pain. No odynophagia. No congestion. RESPIRATORY: Cough, no congestion. No hemoptysis. No shortness of breath. CARDIOVASCULAR: No angina symptoms. No CHF symptoms. No atypical chest pain for CAD. No palpitations. No orthopnea.. GASTROINTESTINAL: No abdominal pain. No nausea or vomiting. No diarrhea or constipation. No hematemesis. No hematochezia. GENITOURINARY: No urgency. No frequency. No dysuria. No hematuria. No obstructive symptoms. No discharge. No pain. No significant abnormal bleeding. MUSCULOSKELETAL: No musculoskeletal pain; no joint swelling. NEUROLOGICAL: Awake, alert, oriented to time, place and person. No headache. No neck pain. No syncope. No seizures. No dizziness. PSYCHIATRIC: Not anxious. No depression. No suicidal thoughts. No homicidal thoughts. SKIN: No rash. No lesions. No wounds. ENDOCRINE: No unexplained weight loss. No weight gain. HEMATOLOGIC/LYMPHATIC: No anemia. No purpura. No petechiae. No prolonged or excessive bleeding. No palpable lymph nodes. PHYSICAL EXAMINATION: GENERAL: The patient is awake, alert and oriented, sitting in bed in no distress. VITAL SIGNS: Temperature 97.3 F, Pulse 95, Respiratory Rate 18, BP 129/61, Pulse Ox 97% HEENT: Head normocephalic, atraumatic. Eyes: Extraocular muscles are intact. Pupils are equal, round and reactive to light and accommodation. Ears: No lesions. Nose appeared normal. Throat: No exudate or erythema. NECK: Supple. No JVD, no carotid bruit. No lymphadenopathy or thyromegaly. LUNGS: Diminished breath sounds. Clear to auscultation. Percussion note normal. Chest symmetrical. HEART: S1, S2, no S3. No murmurs. No cyanosis or clubbing. No ascites. Pulses: Dorsalis pedis and posterior tibial pulses +1 to +2 both sides. ABDOMEN: Soft. Non-tender. Bowel sounds active. No CVA tenderness. No mass felt. EXTREMITIES: No edema. Full range of motion of all extremities, equal. NEUROLOGIC: No focal deficit. Cranial nerves II through XII are grossly intact. No headache. No double vision. SKIN: Not dry. Intact. Turgor-normal. LYMPHATIC: No palpable lymph nodes/no lymphedema. MUSCULOSKELETAL: Normal joints with no swelling. Muscle tone is normal. LAB REVIEW: 12/08/21 04:55 12/08/21 04:55 12/08/21 04:55: Sodium 136.1, Potassium 4.56, Chloride 102.0, Carbon Dioxide 23.4, Anion Gap 15.26, BUN 27.1 H, Creatinine 0.98, Estimated GFR (MDRD) 76.00, BUN/Creatinine Ratio 27.65, Glucose 265.8 H, Calcium 9.35, Total Bilirubin 0.27, AST 28.4, ALT 28.6, Alkaline Phosphatase 65.8, Total Protein 6.56, Albumin 3.66, Globulin 2.90, Albumin/Globulin Ratio 1.26 12/08/21 04:55: WBC 12.87 H D, RBC 3.98 L, Hgb 11.8 L, Hct 35.2 L, MCV 88.4, MCH 29.6, MCHC 33.5, RDW Coeff of Karen 13.2, Plt Count 245, Immature Gran % (Auto) 0.3, Neut % (Auto) 86.9 H, Lymph % (Auto) 8.1 L, Parmer % (Auto) 4.7, Eos % (Auto) 0.0, Baso % (Auto) 0.0, Neut # (Auto) 11.2 H, Lymph # (Auto) 1.0, Parmer # (Auto) 0.6, Eos # (Auto) 0.0, Baso # (Auto) 0.0, Immature Gran # (Auto) 0.0 ASSESSMENT: Please see below. 1. Acute COPD exacerbation 2. Diabetes Mellitus type II 3. Hypertension 4. Noncompliance PLAN: 1. Discharge home 2. Zithromax 500mg PO 3. Rocephin 1 gram IM 4. Prednisone 20mg daily for 5 days Plan and coordination of the patient's care discussed in the presence of Subway Train Operator and nurse. SCRIBED BY: Nigel GRIFFIN scribed while in presence of service performed by Dr. Holm/Xenia Mullins APRN on 12/08/21 ([id number])
[2021-12-08] MEDS: SYMBICORT 160-4.5 MCG INHALER IH SCH (09:32)
--- NOTE | 2021-12-15 12:36 | PN ---
DATE OF SERVICE: 12/06/21 ADMIT NOTE SUBJECTIVE: The patient was hospitalized with COPD exacerbation. The patient has continued to smoke two packs per day. He is short of breath with cough, congestion and difficulty breathing for past several days. He denies of any fever, no chills. COVID negative and Influenza A and B negative. The patient had one vaccine for COVID otherwise he didn't take any. The patient is noncompliance. He has history of hypertension, COPD, dyslipidemia. The patient also has gained 7-8 pounds in past 4-6 weeks. He was seen and examined in the clinic nearly 6 weeks ago. REVIEW OF SYSTEMS: CONSTITUTIONAL: No night sweats. No fatigue, malaise, lethargy. No fever or chills. HEENT: Eyes: No visual changes. No eye pain. No eye discharge. ENT: No runny nose. No epistaxis. No sinus pain. No sore throat. No odynophagia. No congestion. RESPIRATORY: No cough, no congestion. No hemoptysis. No shortness of breath. CARDIOVASCULAR: No angina symptoms. No CHF symptoms. No atypical chest pain for CAD. No palpitations. No PND. No orthopnea. GASTROINTESTINAL: No abdominal pain. No nausea or vomiting. No diarrhea or constipation. No hematemesis. No hematochezia. GENITOURINARY: No urgency. No frequency. No dysuria. No hematuria. No obstructive symptoms. No discharge. No pain. No significant abnormal bleeding. MUSCULOSKELETAL: No musculoskeletal pain; no joint swelling. NEUROLOGICAL: No headache. No neck pain. No syncope. No seizures. No dizziness. PSYCHIATRIC: Not anxious. No depression. No suicidal thoughts. No homicidal thoughts. SKIN: No rash. No lesions. No wounds. ENDOCRINE: No unexplained weight loss. No weight gain. HEMATOLOGIC/LYMPHATIC: No anemia. No purpura. No petechiae. No prolonged or excessive bleeding. No palpable lymph nodes. PHYSICAL EXAMINATION: HEENT: Head normocephalic, atraumatic. Eyes: Extraocular muscles are intact. Pupils are equal, round and reactive to light and accommodation. Ears: No lesions. Nose appeared normal. Throat: No exudate or erythema. NECK: Supple. No JVD, no carotid bruit. No lymphadenopathy or thyromegaly. LUNGS: Decreased breath sounds with mild wheeze. Clear to auscultation. Percussion note normal. Chest symmetrical. HEART: S1, S2, no S3. No murmurs. No cyanosis or clubbing. No ascites. Pulses: Dorsalis pedis and posterior tibial pulses +1 to +2 bilaterally. ABDOMEN: Soft. Nontender. Bowel sounds active. No CVA tenderness. No mass felt. EXTREMITIES: No edema. Full range of motion of all extremities, equal. NEUROLOGIC: No focal deficit. Cranial nerves II through XII are grossly intact. No headache. No double vision. SKIN: Not dry. Intact. Turgor - normal. LYMPHATIC: No palpable lymph nodes/no lymphedema. MUSCULOSKELETAL: Normal joints with no swelling. Muscle tone is normal. LABS: Atrial blood gasses acceptable with oxygen saturation of 91%. PLAN: 1. Hospitalized the patient and treat him with antibiotics Rocephin and Zithromax. 2. Also used steroids IV and NEBS 3. Counseling for smoking done. CONDITION: Stable PROGNOSIS: Guarded Cardiovascular status is stable with no evidence of CHF. The patient's BNP was normal. TIME SPENT: More than 30 minutes. Plan and coordination of the patient's care discussed in the presence of nurse. PALOMO
--- NOTE | 2021-12-16 08:36 | DS ---
DATE OF SERVICE: 12/08/21 FINAL DIAGNOSIS: 1. Acute COPD exacerbation with acute respiratory failure 2. Diabetes mellitus type I I 3. Hypertension 4. Noncompliance with medications, followup and lifestyle, diet DISCHARGE INSTRUCTIONS: Discharge home today. Resume all other medications as ordered. Followup with Dr. Lan's office on December 21. MEDICATIONS AT DISCHARGE: Aspirin 81mg PO daily Lasix 40mg PO daily Lisinopril 10mg PO daily Coreg 3.125mg PO BID Potassium Chloride 20meq Po daily Metformin 500mg PO BID Lovastatin 20mg PO daily Famotidine 40mg PO QPM Symbicort two puff inhalation BID Ventolin HFA two puff inhalation QID PRN NEW PRESCRIPTIONS: Prednisone 10mg PO daily DIET INSTRUCTIONS: Regular with plenty of fluids ACTIVITY: Resume activity as tolerated. take breaks to avoid respiratory exertion. HOSPITAL COURSE: This is a 71 year old white male who presented to the emergency room complaining of cough, congestion and shortness of breath for past several days. Initially he was on oxygen at 2 liters for about 24 hours. For the past 24 hours he has been on room air oxygen saturation is 97%. He was started on Rocephin IV along with Zithromax IV and placed on Decadron IM daily. Over the course of the past 48 hours condition has steadily improved. He does have increased air movement and has been up and about eating well and afebrile. He was negative for COVID, negative for Flu. He has no fever. Sugars have been controlled while in the hospital. Medications have been reconciled. He doesn't always take his home medications as he does have a long history of noncompliance. He is a heavy smoker. He is requesting to be discharged home today and states he feels better. Again, he has been sating 98% on room air. We will send him on Omnicef 300mg PO BID for the next 7 days. He has completed three doses of Zithromax while also given Prednisone 20mg daily for 5 days. He has a Symbicort and Albuterol inhaler which he has been instructed to use at home. He is to stay indoors for at least the next week and continue with increased rest and fluids and return back to the ER if symptoms worsen. TIME SPENT: More than 60 minutes. [facility]
== END 2021-12-08 09:22 | disposition home or self-care (01) | DRG 192 ==
LOC: ED 18:48 → MEDSURG A 21:21
PROVIDERS: ADMIT Internal Medicine; ATTEND Internal Medicine
DX: R06.02 Shortness of breath; E78.5 Hyperlipidemia, unspecified; Z51.81 Encounter for therapeutic drug level monitoring; E86.0 Dehydration; Z79.82 Long term (current) use of aspirin; Z28.311 Partially vaccinated for COVID-19; Z79.84 Long term (current) use of oral hypoglycemic drugs; F17.210 Nicotine dependence, cigarettes, uncomplicated; E11.9 Type 2 diabetes mellitus without complications; Z79.899 Other long term (current) drug therapy; Z91.199 Patient's noncompliance with other medical treatment and regimen due to unspecified reason; J44.1 Chronic obstructive pulmonary disease with (acute) exacerbation; I10 Essential (primary) hypertension; Z20.822 Contact with and (suspected) exposure to COVID-19